=== PATIENT | male | born 1980 | race Caucasian/White ===

== ENCOUNTER 2018-10-13 21:01 | Emergency (ER) | payer MEDICAID, OTHER | END 2018-10-13 23:08 | disposition home or self-care (01) | LOC: ER 21:01 ==

== ENCOUNTER 2019-02-05 16:44 | Emergency (ER) | payer MEDICAID ==
[~2019-02-05] VITALS: Ht 182.9 cm; Wt 93.0 kg
[~2019-02-05 16:44] MED LIST: SULF1TAB35 PO; TRAM-42 PO
[2019-02-05 16:52] VITALS: BP 160/86
--- NOTE | 2019-02-05 17:23 | ED General ---
General Chief Complaint: Cough/Cold/Flu Symptoms Stated Complaint: POSSIBLE DEHYDRATION Nursing Triage Note: pt states he was recently put on medication for bronchitis and he noticed that he is dehydrated. He has not urinated today and is not sweating like he normally does at his job. Nursing Sepsis Screen: No Definite Risk Source of Information: Patient Exam Limitations: No Limitations History of Present Illness Date Seen by Provider: Feb 05, 2019 Time Seen by Provider: 17:21 Initial Comments 38-year-old male who presents to the emergency room with complaints of feelings of fatigue and concerned with dehydration. He reports that he has not urinated since this morning nor has he perspired like normal when he works. Denies fevers. Timing/Duration: 1 Day Associated Systoms: No Diaphoresis Allergies and Home Medications Allergies Coded Allergies: No Known Drug Allergies (Unverified , 10/13/18) Home Medications Sulfamethoxazole/Trimethoprim 1 Each Tablet, 1 EACH PO BID Prescribed by: JERONIMO AMEZCUA on 10/13/182247 Tramadol HCl 50 Mg Tablet, 50 MG PO Q6H PRN for PAIN-MILD Prescribed by: JERONIMO AMEZCUA on 10/13/182247 Patient Home Medication List Home Medication List Reviewed: Yes Review of Systems Review of Systems Constitutional: see HPI; No chills, No fever; malaise Skin: see HPI, other (not perspiring like normal) All Other Systems Reviewed Negative Unless Noted: Yes Past Dbtbvjs-Hhxubz-Mfvjrt Hx Past Med/Social Hx: Reviewed Nursing Past Med/Soc Hx Patient Social History Alcohol Use: Denies Use Recreational Drug Use: Yes Drug of Choice: METH Smoking Status: Current Everyday Smoker Type Used: Cigars Recent Foreign Travel: No Contact w/Someone Who Travel: No Recent Infectious Disease Expo: No Recent Hopitalizations: No Immunizations Up To Date Tetanus Booster (TDap): Unknown PED Vaccines UTD: Yes Seasonal Allergies Seasonal Allergies: No Past Medical History Surgeries: No Respiratory: No Cardiac: No Neurological: No Genitourinary: No Gastrointestinal: No Musculoskeletal: No Endocrine: No HEENT: No Cancer: No Psychosocial: Yes Bipolar Integumentary: No Family Medical History Reviewed Nursing Family Hx Physical Exam Vital Signs Vital Signs - First Documented 02/05/19 16:52 Temp 98.6 Pulse 110 Resp 20 B/P (MAP) 160/86 (110) Pulse Ox 94 O2 Delivery Room Air Capillary Refill : Less Than 3 Seconds Height, Weight, BMI Height: 6'0" Weight: 205lbs. oz. 92.331228lg; BMI Method:Stated General Appearance: No Apparent Distress, WD/WN HEENT: PERRL/EOMI, TMs Normal, Normal ENT Inspection, Pharynx Normal Neck: Full Range of Motion, Normal Inspection, Non Tender, Supple, Carotid Bruit Respiratory: Chest Non Tender, Lungs Clear, Normal Breath Sounds, No Accessory Muscle Use, No Respiratory Distress Cardiovascular: Regular Rate, Rhythm, No Edema, No Gallop, No JVD, No Murmur, Normal Peripheral Pulses Gastrointestinal: Normal Bowel Sounds, No Organomegaly, No Pulsatile Mass, Non Tender, Soft Progress/Results/Core Measures Suspected Sepsis Recent Fever Within 48 Hours: No Infection Criteria Present: None New/Unexplained Altered Menta: No Sepsis Screen: No Definite Risk SIRS Temperature:98.6 Pulse: 110 Respiratory Rate: 20 Blood Pressure 160 /86 Mean: 110 Results/Orders My Orders Vital Signs/I&O Capillary Refill : Less Than 3 Seconds Blood Pressure Mean: 110 Progress Note : Time: 18:31 Progress Note Nursing staff informed me that the patient wishes to leave AGAINST MEDICAL ADVICE at this time. The patient was informed of risks of leaving and benefits of staying. He agrees to risks of leaving. Return precautions were given. AMA papers were signed. Departure Impression Primary Impression: Left against medical advice Additional Impression: mild rhabdomyolysis Disposition: 07 AGAINST MEDICAL ADVICE Condition: Against Medical Advice Departure-Patient Inst. Referrals: DELFINO MARCUM MD (PCP/Family) Primary Care Physician JERONIMO AMEZCUA Feb 05, 2019 17:23
[2019-02-05 17:25] LABS: BASOPHILS % (AUTO) 0 % (0-10); EOSINOPHILS % (AUTO) 0 % (0-10); HEMATOCRIT 41 % (40-54); LYMPHOCYTES # (AUTO) 1.3 X 10^3 (1.0-4.0); LYMPHOCYTES % (AUTO) 10 % (12-44); MEAN CORPUSCULAR HEMOGLOBIN 30 PG (25-34); MEAN CORPUSCULAR HGB CONC 35 G/DL (32-36); MEAN CORPUSCULAR VOLUME 87 FL (80-99); MEAN PLATELET VOLUME 10.9 FL (7.4-10.4); MONOCYTES # (AUTO) 0.6 X 10^3 (0.0-1.0); MONOCYTES % (AUTO) 5 % (0-12); NEUTROPHILS # (AUTO) 11.6 X 10^3 (1.8-7.8); NEUTROPHILS % (AUTO) 85 % (42-75); PLATELET COUNT 265 10^3/uL (130-400); RED CELL DISTRIBUTION WIDTH 12.6 % (10.0-14.5); WHITE BLOOD COUNT 13.6 10^3/uL (4.3-11.0)
[2019-02-05] MEDS ORDERED: NS IV 1000 ML 1,000 ML IV SCH (17:30)
[2019-02-05 17:43] LABS: ALANINE AMINOTRANSFERASE 52 U/L (0-55); ALBUMIN 4.4 GM/DL (3.2-4.5); ALKALINE PHOSPHATASE 104 U/L (40-136); BILIRUBIN,TOTAL 0.4 MG/DL (0.1-1.0); BUN/CREATININE RATIO 20; CALCIUM 9.9 MG/DL (8.5-10.1); CARBON DIOXIDE 18 MMOL/L (21-32); CHLORIDE 108 MMOL/L (98-107); CREATINE KINASE 671 U/L (30-200); CREATININE SERUM 1.12 MG/DL (0.60-1.30); GFR ESTIMATED > 60; GLUCOSE 134 MG/DL (70-105); POTASSIUM 4.1 MMOL/L (3.6-5.0); SODIUM 142 MMOL/L (135-145); TOTAL PROTEIN 7.6 GM/DL (6.4-8.2)
[2019-02-05 18:28] LABS: BILIRUBIN,URINE NEGATIVE (NEGATIVE); CLARITY,URINE CLEAR; COLOR,URINE YELLOW; GLUCOSE, URINE (UA) NEGATIVE (NEGATIVE); KETONES,URINE NEGATIVE (NEGATIVE); LEUKOCYTE ESTERASE ,URINE NEGATIVE (NEGATIVE); NITRITE,URINE NEGATIVE (NEGATIVE); PH,URINE 6 (5-9); PROTEIN,URINE NEGATIVE (NEGATIVE); UROBILINOGEN,URINE NORMAL (NORMAL)
[2019-02-05 18:37] LABS: BACTERIA,URINE NEGATIVE /HPF; SQUAMOUS EPITHELIAL CELL,UR RARE /HPF
[2019-02-05 18:50] LABS: AMPHETAMINE SCREEN, URINE POSITIVE (NEGATIVE); BARBITURATE SCREEN URINE NEGATIVE (NEGATIVE); BENZODIAZEPINES SCREEN URINE NEGATIVE (NEGATIVE); CANNABINOID SCREEN, URINE NEGATIVE (NEGATIVE); COCAINE SCREEN URINE NEGATIVE (NEGATIVE); METHADONE STAT NEGATIVE (NEGATIVE); METHAMPHETAMINE SCREEN URINE S NEGATIVE (NEGATIVE); OPIATE SCREEN URINE NEGATIVE (NEGATIVE); OXYCODONE STAT NEGATIVE (NEGATIVE); PROPOXYPHENE STAT NEGATIVE (NEGATIVE); TRICYCLIC ANTIDEPRESSANTS SCRE NEGATIVE (NEGATIVE)
== END 2019-02-05 18:31 | disposition left against medical advice (07) ==
LOC: EDUNIT# 16:44 → ER 16:45
DX: R53.83 Other fatigue (principal); F31.9 Bipolar disorder, unspecified; F15.10 Other stimulant abuse, uncomplicated; F17.290 Nicotine dependence, other tobacco product, uncomplicated
CPT/HCPCS: 36415; 80053; 80306; 81000; 82550; 85025

== ENCOUNTER 2019-10-17 18:54 | Inpatient (IN) | payer OTHER, MEDICAID ==
[~2019-10-17] VITALS: Ht 182.8 cm; Wt 95.0 kg
[2019-10-17] MEDS ORDERED: NS IV 1000 ML 1,000 ML ONE (19:03)
[2019-10-17] MEDS ORDERED: KETAMINE/NaCl 50 MG/5 ML SYRINGE (ED ONLY) ONE (19:03)
[2019-10-17] MEDS ORDERED: NS IV 1000 ML 1,000 ML IV ONE ×2 (19:05→19:46)
[2019-10-17 19:11] LABS: BASOPHILS # (AUTO) 0.1 10^3/uL (0.0-0.1); BASOPHILS % (AUTO) 0 % (0-10); EOSINOPHILS # (AUTO) 0.2 10^3/uL (0.0-0.3); EOSINOPHILS % (AUTO) 1 % (0-10); HEMATOCRIT 48 % (40-54); HEMOGLOBIN 16.9 G/DL (13.3-17.7); LYMPHOCYTES # (AUTO) 6.4 X 10^3 (1.0-4.0); LYMPHOCYTES % (AUTO) 26 % (12-44); MEAN CORPUSCULAR HEMOGLOBIN 30 PG (25-34); MEAN CORPUSCULAR HGB CONC 35 G/DL (32-36); MEAN CORPUSCULAR VOLUME 86 FL (80-99); MEAN PLATELET VOLUME 11.3 FL (7.4-10.4); MONOCYTES % (AUTO) 8 % (0-12); NEUTROPHILS # (AUTO) 16.1 X 10^3 (1.8-7.8); NEUTROPHILS % (AUTO) 65 % (42-75); PLATELET COUNT 281 10^3/uL (130-400); RED CELL DISTRIBUTION WIDTH 12.6 % (10.0-14.5); WHITE BLOOD COUNT 24.7 10^3/uL (4.3-11.0)
[2019-10-17] MEDS ORDERED: AMIODARONE FOR BOLUS 150 MG in D5W 100 ML IVPB 100 ML IV ONE (19:15)
[2019-10-17 19:23] LABS: INR 1.1 (0.8-1.4); PROTHROMBIN TIME PATIENT 14.8 SEC (12.2-14.7)
[2019-10-17] MEDS: AMIODARONE INJECTION 450 MG in D5W IV SOLUTION (EXCEL) 250 ML IV SCH (19:26)
[2019-10-17 19:28] LABS: BAND NEUTROPHILS 6 %; BASOPHILS % (MANUAL) 0 %; EOSINOPHILS % (MANUAL) 1 %; LYMPHOCYTES % (MANUAL) 27 %; MONOCYTES % (MANUAL) 11 %; NEUTROPHILS % (MANUAL) 55 %; RBC MORPH NORMAL
[2019-10-17 19:30] LABS: ALANINE AMINOTRANSFERASE 174 U/L (0-55); ALBUMIN 4.9 GM/DL (3.2-4.5); ALKALINE PHOSPHATASE 131 U/L (40-136); BILIRUBIN,TOTAL 1.2 MG/DL (0.1-1.0); BUN/CREATININE RATIO 14; CALCIUM 10.2 MG/DL (8.5-10.1); CARBON DIOXIDE 15 MMOL/L (21-32); CHLORIDE 101 MMOL/L (98-107); CREATININE SERUM 2.14 MG/DL (0.60-1.30); GFR ESTIMATED 34; GLUCOSE 154 MG/DL (70-105); MAGNESIUM 2.1 MG/DL (1.6-2.4); POTASSIUM 4.6 MMOL/L (3.6-5.0); SODIUM 135 MMOL/L (135-145); TOTAL PROTEIN 8.5 GM/DL (6.4-8.2)
[2019-10-17] MEDS ORDERED: ASPIRIN 81 MG CHEW (CHILDREN'S ASA) PO ONE (19:30)
[2019-10-17] MEDS ORDERED: MAGNESIUM 1 GM/100 ML IVPB 100 ML IV ONE (19:30)
--- NOTE | 2019-10-17 19:41 | ED Chest Pain ---
General Chief Complaint: Cardiac/General Problems Stated Complaint: CHEST PAIN, Nursing Triage Note: has had all over body pain since yesterday including chest pain, states today it continued with worsening and SOB, arrived to ED with c/o tia arm pain and "horse shoe" pain in his chest Nursing Sepsis Screen: No Definite Risk Source: patient Exam Limitations: no limitations History of Present Illness Date Seen by Provider: Oct 17, 2019 Time Seen by Provider: 18:56 Initial Comments This 38-year-old man presents to the emergency room by private vehicle with complaints of chest pain, shortness of air, and numbness in his upper extremities. 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 He was "sore all over" which he attributed to the manual labor. This morning he woke up with a sweat and continued to have sweats throughout the day. He noted dyspnea on exertion, especially with taking stairs. He noted bilateral arm pain and bilateral upper extremity numbness. Chest pain started in a horseshoe pattern across his chest about 30 minutes prior to arrival. He has extreme tachycardia on the monitor, likely ventricular tachycardia. He does have a palpable pulse and is alert. He denies any history of cardiac problems. He admits to smoking tobacco and using methamphetamines about 2 weeks ago. He denies any alcohol use. His only other health issue is bipolar disorder for which she takes Latuda. Allergies and Home Medications Allergies Coded Allergies: No Known Drug Allergies (Unverified , 10/13/18) Home Medications Sulfamethoxazole/Trimethoprim 1 Each Tablet, 1 EACH PO BID Prescribed by: JERONIMO AMEZCUA on 10/13/182247 Tramadol HCl 50 Mg Tablet, 50 MG PO Q6H PRN for PAIN-MILD Prescribed by: JERONIMO AMEZCUA on 10/13/182247 Patient Home Medication List Home Medication List Reviewed: Yes Review of Systems Review of Systems Constitutional: see HPI EENTM: No Symptoms Reported Respiratory: See HPI Cardiovascular: See HPI Gastrointestinal: No Symptoms Reported Genitourinary: No Symptoms Reported Musculoskeletal: see HPI Skin: no symptoms reported Psychiatric/Neurological: See HPI Endocrine: No Symptoms Reported Hematologic/Lymphatic: No Symptoms Reported Past Wrhtwcr-Scyjya-Hatmnj Hx Past Med/Social Hx: Reviewed and Corrections made Patient Social History Recreational Drug Use: Yes Drug of Choice: METH Type Used: Cigars Recent Foreign Travel: No Contact w/Someone Who Travel: No Recent Infectious Disease Expo: No Recent Hopitalizations: No Immunizations Up To Date Tetanus Booster (TDap): Unknown PED Vaccines UTD: Yes Seasonal Allergies Seasonal Allergies: No Past Medical History Surgeries: No Respiratory: No Cardiac: No Neurological: No Genitourinary: No Gastrointestinal: No Musculoskeletal: No Endocrine: No HEENT: No Cancer: No Psychosocial: Yes (methamphetamine abuse) Bipolar Integumentary: No Physical Exam Vital Signs Vital Signs - First Documented 10/17/19 10/17/19 18:56 19:32 Temp 36.3 Pulse 250 Resp 20 B/P (MAP) 99/77 (84) Pulse Ox 98 O2 Delivery OxyMask O2 Flow Rate 12.00 Capillary Refill : Less Than 3 Seconds Height, Weight, BMI Height: 6'0" Weight: 205lbs. oz. 92.495089us; 27.00 BMI Method:Stated General Appearance: WD/WN, Mild Distress HEENT: PERRL/EOMI, Normal ENT Inspection Neck: Normal Inspection Respiratory: Lungs Clear, Normal Breath Sounds, No Accessory Muscle Use, No Respiratory Distress Cardiovascular: No Edema, No Murmur, Tachycardia Gastrointestinal: Normal Bowel Sounds, Non Tender, Soft Extremity: No Pedal Edema, Other (pale and cool distal extemities) Neurologic/Psychiatric: Alert, Oriented x3, No Motor/Sensory Deficits, Normal Mood/Affect, inventory specialist manager II-XII Norm as Tested Skin: Cool, Pallor Progress/Results/Core Measures Results/Orders Lab Results Laboratory Tests Test 10/17/19 18:45 10/17/19 18:48 10/17/19 18:58 Range/Units B-Type Natriuretic Peptide 866.6 H <100.0 PG/ML White Blood Count 24.7 H 4.3-11.0 10^3/uL Red Blood Count 5.60 4.35-5.85 10^6/uL Hemoglobin 16.9 13.3-17.7 G/DL Hematocrit 48 40-54 % Mean Corpuscular Volume 86 80-99 FL Mean Corpuscular Hemoglobin 30 25-34 PG Mean Corpuscular Hemoglobin Concent 35 32-36 G/DL Red Cell Distribution Width 12.6 10.0-14.5 % Platelet Count 281 130-400 10^3/uL Mean Platelet Volume 11.3 H 7.4-10.4 FL Neutrophils (%) (Auto) 65 42-75 % Lymphocytes (%) (Auto) 26 12-44 % Monocytes (%) (Auto) 8 0-12 % Eosinophils (%) (Auto) 1 0-10 % Basophils (%) (Auto) 0 0-10 % Neutrophils # (Auto) 16.1 H 1.8-7.8 X 10^3 Lymphocytes # (Auto) 6.4 H 1.0-4.0 X 10^3 Monocytes # (Auto) 2.0 H 0.0-1.0 X 10^3 Eosinophils # (Auto) 0.2 0.0-0.3 10^3/uL Basophils # (Auto) 0.1 0.0-0.1 10^3/uL Neutrophils % (Manual) 55 % Lymphocytes % (Manual) 27 % Monocytes % (Manual) 11 % Eosinophils % (Manual) 1 % Basophils % (Manual) 0 % Band Neutrophils 6 % Blood Morphology Comment NORMAL Prothrombin Time 14.8 H 12.2-14.7 SEC INR Comment 1.1 0.8-1.4 Activated Partial Thromboplast Time 29 24-35 SEC Sodium Level 135 135-145 MMOL/L Potassium Level 4.6 3.6-5.0 MMOL/L Chloride Level 101 98-107 MMOL/L Carbon Dioxide Level 15 L 21-32 MMOL/L Anion Gap 19 H 5-14 MMOL/L Blood Urea Nitrogen 29 H 7-18 MG/DL Creatinine 2.14 H 0.60-1.30 MG/DL Estimat Glomerular Filtration Rate 34 BUN/Creatinine Ratio 14 Glucose Level 154 H 70-105 MG/DL Calcium Level 10.2 H 8.5-10.1 MG/DL Corrected Calcium 8.5-10.1 MG/DL Magnesium Level 2.1 1.6-2.4 MG/DL Total Bilirubin 1.2 H 0.1-1.0 MG/DL Aspartate Amino Transf (AST/SGOT) 109 H 5-34 U/L Alanine Aminotransferase (ALT/SGPT) 174 H 0-55 U/L Alkaline Phosphatase 131 40-136 U/L Myoglobin 109.3 H 10.0-92.0 NG/ML Troponin I 0.161 H <0.028 NG/ML Total Protein 8.5 H 6.4-8.2 GM/DL Albumin 4.9 H 3.2-4.5 GM/DL Serum Alcohol < 10 <10 MG/DL My Orders Orders - NIKKO ALMEIDA MD Ekg Tracing (10/17/19 18:56) Cbc With Automated Diff (10/17/19 19:05) Magnesium (10/17/19 19:05) Chest 1 View, Ap/Pa Only (10/17/19 19:05) Ekg Tracing (10/17/19 19:05) Comprehensive Metabolic Panel (10/17/19 19:05) Myoglobin Serum (10/17/19 19:05) Protime With Inr (10/17/19 19:05) Partial Thromboplastin Time (10/17/19 19:05) O2 (10/17/19 19:05) Monitor-Rhythm Ecg Trace Only (10/17/19 19:05) Ed Iv/Invasive Line Start (10/17/19 19:05) Ns Iv 1000 Ml (Sodium Chloride 0.9%) (10/17/19 19:05) Amiodarone For Bolus (Cordarone Bolus) (10/17/19 19:15) Ketamine Syringe (Ed Only) (Ketamine Syr (10/17/19 19:03) Ns Iv 1000 Ml (Sodium Chloride 0.9%) (10/17/19 19:03) Manual Differential (10/17/19 18:48) Troponin I (10/17/19 18:48) Amiodarone Injection (Cordarone Injectio (10/17/19 19:30) Alcohol (10/17/19 19:16) Drug Screen Stat (Urine) (10/17/19 19:16) Ekg Tracing (10/17/19 19:17) Ekg Tracing (10/17/19 19:17) Aspirin Chewable Tablet (Baby Aspirin Ch (10/17/19 19:30) Magnesium 1 Gm/100 Ml Ivpb (Magnesium Alvarez (10/17/19 19:30) Metoprolol Tartrate Injection (Lopressor (10/17/19 19:45) BNP (10/17/19 19:32) Medications Given in ED Current Medications Medications Dose Ordered Sig/Raul Route Start Time Stop Time Status Last Admin Dose Admin Amiodarone HCl 150 mg/Dextrose 103 ml @ 600 mls/hr ONCE ONCE IV 10/17/19 19:15 10/17/19 19:25 DC 10/17/19 19:04 600 MLS/HR Aspirin 324 mg ONCE ONCE PO 10/17/19 19:30 10/17/19 19:31 DC 10/17/19 19:30 324 MG Magnesium Sulfate/ Dextrose 100 ml @ 100 mls/hr ONCE ONCE IV 10/17/19 19:30 10/17/19 20:29 DC 10/17/19 19:30 100 MLS/HR Sodium Chloride 1,000 ml @ 0 mls/hr Q0M ONCE IV 10/17/19 19:05 10/17/19 19:07 DC 10/17/19 19:50 1,000 MLS/HR Vital Signs/I&O 10/17/19 10/17/19 18:56 19:32 Temp 36.3 Pulse 250 Resp 20 B/P (MAP) 99/77 (84) Pulse Ox 98 O2 Delivery OxyMask O2 Flow Rate 12.00 Blood Pressure Mean: 84 Progress Progress Note #1: Time: 20:40 Progress Note Patient was promptly seen and evaluated. Case was immediately discussed with Dr. Barker. He recommended a amiodarone 150 mg bolus followed by sedation and defibrillation. Patient was given the amiodarone and converted to a sinus rhythm without defibrillation. He maintained acceptable blood pressure. Case was again reviewed with Dr. Barker. He recommended the addition of 1 g of magnesium and IV Lopressor. Patient was found to have acute kidney injury with elevated creatinine. He received 2 L of IV fluid. He remained in stable rhythm on an amiodarone drip. Troponin was elevated but there was no diagnostic ST elevation on multiple EKGs. Progress Note #2: Time: 20:49 Progress Note Brilinta and a heparin drip for added at Dr. Barker's request after elevated troponin was communicated. EKG #1: EKG Time: 18:58 Rate: 241 Comment Extreme tachycardia with wide complex, likely ventricular tachycardia. EKG #2: EKG Time: 19:03 Rate: 64 Rhythm: Normal Sinus Comment Sinus rhythm with low amplitude P waves. No diagnostic ischemic changes. Repolarization abnormality noted. EKG #3: EKG Time: 19:22 Rate: 81 Rhythm: Normal Sinus Comment Normal sinus rhythm with prolonged QT interval of 516. Repolarization ab normality but no diagnostic ischemic changes. Diagnostic Imaging Diagonstic Imaging: Xray Plain Films/CT/US/NM/MRI: chest Comments NAME: DEMOND ALCALA [facility] REC#: [id number] PT STATUS: REG ER : 1980 PHYSICIAN: NIKKO ALMEIDA MD ADMIT DATE: 10/17/19/ER Draft Date of Exam:10/17/19 CHEST 1 VIEW, AP/PA ONLY EXAMINATION: Portable erect AP chest at 7:31 PM INDICATION: Chest pain There are no prior studies available for comparison. The heart size is within normal limits. The lungs are clear. There is no sign of failure, pneumonia or a pleural effusion. The right perihilar region, however, is partially obscured by an external carotid monitoring electrode. The mediastinum is not widened. The osseous structures are intact. IMPRESSION: There is no evidence for active disease. Dictated on workstation # [id number] Dict: 10/17/19 1945 Trans: 10/17/[address] [place] [address] [id number] Interpreted by: HILLARY FITZGERALD MD Departure Communication (Admissions) Time/Spoke to Admitting Phy: 19:30 Dr. Nur Time/Spoke to Consulting Phy: 19:25 Dr. Barker Impression Primary Impression: Ventricular tachycardia Additional Impressions: Chest pain Qualified Codes: R07.9 - Chest pain, unspecified Acute kidney injury Methamphetamine abuse Disposition: ADMITTED INPATIENT Condition: Improved Admissions Decision to Admit Reason: Admit from ER (General) Decision to Admit/Date: Oct 17, 2019 Time/Decision to Admit Time: 18:56 Departure-Patient Inst. Referrals: DELFINO MARCUM MD (PCP/Family) Primary Care Physician NIKKO ALMEIDA MD Oct 17, 2019 19:41
[2019-10-17] MEDS ORDERED: meTOprolol 5 MG/5 ML (LOPRESSOR) VIAL IV ONE (19:45)
--- NOTE | 2019-10-17 19:50 | Diagnostic Imaging Report ---
EXAMINATION: Portable erect AP chest at 7:31 PM INDICATION: Chest pain There are no prior studies available for comparison. The heart size is within normal limits. The lungs are clear. There is no sign of failure, pneumonia or a pleural effusion. The right perihilar region, however, is partially obscured by an external carotid monitoring electrode. The mediastinum is not widened. The osseous structures are intact. IMPRESSION: There is no evidence for active disease. Dictated by: Dictated on workstation # [id number]
[2019-10-17] MEDS ORDERED: HEParin DRIP 25000 UNIT/500ML 500 ML IV ONE (20:47)
[2019-10-17] MEDS ORDERED: HEParin 1000 UNIT/ML (10ML VIAL) FOR BOLUS IV ONE (20:47)
[2019-10-17] MEDS ORDERED: TICAGRELOR 90 MG TABLET (BRILINTA) PO ONE (21:00)
[2019-10-17 21:35] VITALS: BP 126/84
[2019-10-17] MEDS ORDERED: ONDANSETRON 4 MG/2 ML (SDV) Z0FRAN IV PRN (21:45)
[2019-10-17 22:00] VITALS: BP 118/80
[2019-10-17 22:30] VITALS: BP 135/90
[2019-10-17 22:39] LABS: AMPHETAMINE SCREEN, URINE POSITIVE (NEGATIVE); BARBITURATE SCREEN URINE NEGATIVE (NEGATIVE); BENZODIAZEPINES SCREEN URINE NEGATIVE (NEGATIVE); CANNABINOID SCREEN, URINE NEGATIVE (NEGATIVE); COCAINE SCREEN URINE NEGATIVE (NEGATIVE); METHADONE STAT NEGATIVE (NEGATIVE); METHAMPHETAMINE SCREEN URINE S POSITIVE (NEGATIVE); OPIATE SCREEN URINE NEGATIVE (NEGATIVE); OXYCODONE STAT NEGATIVE (NEGATIVE); PROPOXYPHENE STAT NEGATIVE (NEGATIVE); TRICYCLIC ANTIDEPRESSANTS SCRE NEGATIVE (NEGATIVE)
[2019-10-17 22:45] VITALS: BP 119/88
[2019-10-17 23:00] VITALS: BP 126/99
[2019-10-17] MEDS: NS IV 1000 ML 1,000 ML IV SCH (23:04)
[2019-10-17 23:45] VITALS: BP 133/97
[2019-10-18] VITALS (24 sets, daily range): BP systolic 117–165; BP diastolic 81–110
[2019-10-18] MEDS ORDERED: AMIODARONE (OMNICELL DRIP KIT) 150 MG/3 ML IV ONE ×2 (01:35→10:00)
[2019-10-18] MEDS ORDERED: D5W 100 ML IVPB 0 ML IV ONE (01:35)
[2019-10-18] MEDS ORDERED: AMIODARONE 450 MG/9 ML (CORDARONE) VIAL IV ONE ×2 (01:37→10:00)
[2019-10-18] MEDS ORDERED: D5W IV SOLUTION (EXCEL) 250 ML IV ONE (01:38)
[2019-10-18] MEDS: AMIODARONE INJECTION 450 MG in D5W IV SOLUTION (EXCEL) 250 ML IV SCH (01:49)
[2019-10-18] MEDS ORDERED: HEParin DRIP 25000 UNIT/500ML 500 ML IV ONE (02:29)
[2019-10-18 03:46] LABS: BASOPHILS # (AUTO) 0.1 10^3/uL (0.0-0.1); BASOPHILS % (AUTO) 0 % (0-10); EOSINOPHILS # (AUTO) 0.1 10^3/uL (0.0-0.3); EOSINOPHILS % (AUTO) 1 % (0-10); HEMATOCRIT 38 % (40-54); LYMPHOCYTES # (AUTO) 3.7 X 10^3 (1.0-4.0); LYMPHOCYTES % (AUTO) 23 % (12-44); MEAN CORPUSCULAR HEMOGLOBIN 30 PG (25-34); MEAN CORPUSCULAR HGB CONC 35 G/DL (32-36); MEAN CORPUSCULAR VOLUME 87 FL (80-99); MEAN PLATELET VOLUME 11.3 FL (7.4-10.4); MONOCYTES # (AUTO) 1.4 X 10^3 (0.0-1.0); MONOCYTES % (AUTO) 8 % (0-12); NEUTROPHILS # (AUTO) 11.3 X 10^3 (1.8-7.8); NEUTROPHILS % (AUTO) 68 % (42-75); PLATELET COUNT 175 10^3/uL (130-400); RED CELL DISTRIBUTION WIDTH 12.3 % (10.0-14.5); WHITE BLOOD COUNT 16.6 10^3/uL (4.3-11.0)
[2019-10-18 04:11] LABS: ALANINE AMINOTRANSFERASE 107 U/L (0-55); ALBUMIN 3.6 GM/DL (3.2-4.5); ALKALINE PHOSPHATASE 93 U/L (40-136); BILIRUBIN,TOTAL 0.9 MG/DL (0.1-1.0); BUN/CREATININE RATIO 20; CALCIUM 7.9 MG/DL (8.5-10.1); CARBON DIOXIDE 16 MMOL/L (21-32); CHLORIDE 105 MMOL/L (98-107); CHOLESTEROL 149 MG/DL (< 200); CREATININE SERUM 1.03 MG/DL (0.60-1.30); GFR ESTIMATED > 60; GLUCOSE 104 MG/DL (70-105); HDL CHOLESTEROL 44 MG/DL (40-60); MAGNESIUM 1.7 MG/DL (1.6-2.4); POTASSIUM 3.8 MMOL/L (3.6-5.0); SODIUM 132 MMOL/L (135-145); TOTAL PROTEIN 6.1 GM/DL (6.4-8.2); TRIGLYCERIDES 169 MG/DL (<150); VLDL CHOLESTEROL 34 MG/DL (5-40)
[2019-10-18] MEDS: MAGNESIUM 1 GM/100 ML IVPB 100 ML IV SCH ×3 (04:33→06:38)
[2019-10-18] MEDS: POTASSIUM CL 10MEQ/50ML IVPB 50 ML IV SCH (04:33)
[2019-10-18] MEDS: KCL 20 MEQ TAB (K-DUR) PO SCH (04:33)
[2019-10-18] MEDS: NS IV 1000 ML 1,000 ML IV SCH ×6 (04:44→19:39)
[2019-10-18] MEDS: ASPIRIN E.C. 81 MG (ECOTRIN) TAB PO SCH (08:19)
[2019-10-18] MEDS ORDERED: HEParin DRIP 25000 UNIT/500ML 500 ML IV SCH (08:31)
[2019-10-18] MEDS ORDERED: HEParin 1000 UNIT/ML (10ML VIAL) FOR BOLUS IV PRN (08:45)
[2019-10-18] MEDS ORDERED: LURA80TA3 PO (08:55)
[2019-10-18 09:36] LABS: HEMOGLOBIN 12.9 G/DL (13.3-17.7); MEAN PLATELET VOLUME 11.3 FL (7.4-10.4); RED CELL DISTRIBUTION WIDTH 12.2 % (10.0-14.5); WHITE BLOOD COUNT 15.2 10^3/uL (4.3-11.0)
[2019-10-18 09:46] LABS: INR 1.2 (0.8-1.4); PROTHROMBIN TIME PATIENT 15.6 SEC (12.2-14.7)
[2019-10-18] MEDS ORDERED: D5W 250 ML (EXCEL) BAG IV ONE (10:00)
[2019-10-18] MEDS ORDERED: LIDOCAINE 1% INJ 20 ML 20 ML VIAL ONE (10:00)
[2019-10-18] MEDS ORDERED: HEParin 1000 UNIT/ML (10ML VIAL) FOR BOLUS ONE (10:00)
[2019-10-18] MEDS ORDERED: NS IV 1000 ML 2,000 ML ONE (10:01)
--- NOTE | 2019-10-18 10:17 | History & Physical ---
HPI History of Present Illness: 38 yo male came to ER after a few days of chest pain, shortness of breath and night sweats. Denies nasal congestion, sore throat, cough. Found in ER to have V tach with pulse and alert, plan was to give amiodarone and the shock, he converted with amiodarone. Source: patient Date seen by provider: Oct 18, 2019 Time Seen by Provider: 09:55 Attending Physician Luis Nur MD PCP Alex Maguire MD Consult Date of Admission Oct 17, 2019 at 19:33 Home Medications Home Medications Reviewed patient Home Medication Reconciliation performed by pharmacy medication reconciliations lidar technician and/or nursing. Patients Allergies have been reviewed. Allergies Coded Allergies: No Known Drug Allergies (Unverified , 10/13/18) [id number] Hx Patient Social History Alcohol Use: Denies Use Recreational Drug Use: Yes Drug of Choice: METH- smoking and injecting Type Used: Cigars, Electronic/Vapor Recent Foreign Travel: No Contact w/other who traveled: No Recent Hopitalizations: No Recent Infectious Disease Expo: No Immunizations Up To Date Tetanus Booster (TDap): Unknown Past Medical History PMHx: Denies SurgHx: Denies Family Medical History Significant Family History: No Pertinent Family Hx (reports father had one episode of chest pains and work up was okay) Review of Systems ([facility]) Constitutional: diaphoresis; No fever EENTM: No nose congestion, No throat pain Respiratory: No cough Cardiovascular: chest pain Gastrointestinal: No abdominal pain, No constipation, No diarrhea, No nausea, No vomiting Genitourinary: No dysuria Musculoskeletal: joint pain (2 days ago had diffuse body aches) Skin: No rash Psychiatric/Neurological: Anxiety, Depressed Reviewed Test Results Reviewed Test Results Lab Laboratory Tests Test 10/17/19 18:45 10/17/19 18:48 10/17/19 18:58 10/17/19 22:15 Range/Units B-Type Natriuretic Peptide 866.6 H <100.0 PG/ML White Blood Count 24.7 H 4.3-11.0 10^3/uL Red Blood Count 5.60 4.35-5.85 10^6/uL Hemoglobin 16.9 13.3-17.7 G/DL Hematocrit 48 40-54 % Mean Corpuscular Volume 86 80-99 FL Mean Corpuscular Hemoglobin 30 25-34 PG Mean Corpuscular Hemoglobin Concent 35 32-36 G/DL Red Cell Distribution Width 12.6 10.0-14.5 % Platelet Count 281 130-400 10^3/uL Mean Platelet Volume 11.3 H 7.4-10.4 FL Neutrophils (%) (Auto) 65 42-75 % Lymphocytes (%) (Auto) 26 12-44 % Monocytes (%) (Auto) 8 0-12 % Eosinophils (%) (Auto) 1 0-10 % Basophils (%) (Auto) 0 0-10 % Neutrophils # (Auto) 16.1 H 1.8-7.8 X 10^3 Lymphocytes # (Auto) 6.4 H 1.0-4.0 X 10^3 Monocytes # (Auto) 2.0 H 0.0-1.0 X 10^3 Eosinophils # (Auto) 0.2 0.0-0.3 10^3/uL Basophils # (Auto) 0.1 0.0-0.1 10^3/uL Neutrophils % (Manual) 55 % Lymphocytes % (Manual) 27 % Monocytes % (Manual) 11 % Eosinophils % (Manual) 1 % Basophils % (Manual) 0 % Band Neutrophils 6 % Blood Morphology Comment NORMAL Prothrombin Time 14.8 H 12.2-14.7 SEC INR Comment 1.1 0.8-1.4 Activated Partial Thromboplast Time 29 24-35 SEC Sodium Level 135 135-145 MMOL/L Potassium Level 4.6 3.6-5.0 MMOL/L Chloride Level 101 98-107 MMOL/L Carbon Dioxide Level 15 L 21-32 MMOL/L Anion Gap 19 H 5-14 MMOL/L Blood Urea Nitrogen 29 H 7-18 MG/DL Creatinine 2.14 H 0.60-1.30 MG/DL Estimat Glomerular Filtration Rate 34 BUN/Creatinine Ratio 14 Glucose Level 154 H 70-105 MG/DL Calcium Level 10.2 H 8.5-10.1 MG/DL Corrected Calcium 8.5-10.1 MG/DL Magnesium Level 2.1 1.6-2.4 MG/DL Total Bilirubin 1.2 H 0.1-1.0 MG/DL Aspartate Amino Transf (AST/SGOT) 109 H 5-34 U/L Alanine Aminotransferase (ALT/SGPT) 174 H 0-55 U/L Alkaline Phosphatase 131 40-136 U/L Myoglobin 109.3 H 10.0-92.0 NG/ML Troponin I 0.161 H <0.028 NG/ML Total Protein 8.5 H 6.4-8.2 GM/DL Albumin 4.9 H 3.2-4.5 GM/DL Serum Alcohol < 10 <10 MG/DL Urine Opiates Screen NEGATIVE NEGATIVE Urine Oxycodone Screen NEGATIVE NEGATIVE Urine Methadone Screen NEGATIVE NEGATIVE Urine Propoxyphene Screen NEGATIVE NEGATIVE Urine Barbiturates Screen NEGATIVE NEGATIVE Ur Tricyclic Antidepressants Screen NEGATIVE NEGATIVE Urine Phencyclidine Screen NEGATIVE NEGATIVE Urine Amphetamines Screen POSITIVE H NEGATIVE Urine Methamphetamines Screen POSITIVE H NEGATIVE Urine Benzodiazepines Screen NEGATIVE NEGATIVE Urine Cocaine Screen NEGATIVE NEGATIVE Urine Cannabinoids Screen NEGATIVE NEGATIVE Test 10/18/19 03:27 10/18/19 09:25 Range/Units White Blood Count 16.6 H 15.2 H 4.3-11.0 10^3/uL Red Blood Count 4.33 L 4.28 L 4.35-5.85 10^6/uL Hemoglobin 13.0 #L 12.9 L 13.3-17.7 G/DL Hematocrit 38 L 38 L 40-54 % Mean Corpuscular Volume 87 88 80-99 FL Mean Corpuscular Hemoglobin 30 30 25-34 PG Mean Corpuscular Hemoglobin Concent 35 34 32-36 G/DL Red Cell Distribution Width 12.3 12.2 10.0-14.5 % Platelet Count 175 176 130-400 10^3/uL Mean Platelet Volume 11.3 H 11.3 H 7.4-10.4 FL Neutrophils (%) (Auto) 68 42-75 % Lymphocytes (%) (Auto) 23 12-44 % Monocytes (%) (Auto) 8 0-12 % Eosinophils (%) (Auto) 1 0-10 % Basophils (%) (Auto) 0 0-10 % Neutrophils # (Auto) 11.3 H 1.8-7.8 X 10^3 Lymphocytes # (Auto) 3.7 1.0-4.0 X 10^3 Monocytes # (Auto) 1.4 H 0.0-1.0 X 10^3 Eosinophils # (Auto) 0.1 0.0-0.3 10^3/uL Basophils # (Auto) 0.1 0.0-0.1 10^3/uL Sodium Level 132 L 135-145 MMOL/L Potassium Level 3.8 3.6-5.0 MMOL/L Chloride Level 105 98-107 MMOL/L Carbon Dioxide Level 16 L 21-32 MMOL/L Anion Gap 11 5-14 MMOL/L Blood Urea Nitrogen 21 H 7-18 MG/DL Creatinine 1.03 0.60-1.30 MG/DL Estimat Glomerular Filtration Rate > 60 BUN/Creatinine Ratio 20 Glucose Level 104 70-105 MG/DL Calcium Level 7.9 L 8.5-10.1 MG/DL Corrected Calcium 8.2 L 8.5-10.1 MG/DL Magnesium Level 1.7 1.6-2.4 MG/DL Total Bilirubin 0.9 0.1-1.0 MG/DL Aspartate Amino Transf (AST/SGOT) 60 H 5-34 U/L Alanine Aminotransferase (ALT/SGPT) 107 H 0-55 U/L Alkaline Phosphatase 93 40-136 U/L Troponin I 0.158 H <0.028 NG/ML Total Protein 6.1 L 6.4-8.2 GM/DL Albumin 3.6 3.2-4.5 GM/DL Triglycerides Level 169 H <150 MG/DL Cholesterol Level 149 < 200 MG/DL LDL Cholesterol Direct 97 1-129 MG/DL VLDL Cholesterol 34 5-40 MG/DL HDL Cholesterol 44 40-60 MG/DL Prothrombin Time 15.6 H 12.2-14.7 SEC INR Comment 1.2 0.8-1.4 Activated Partial Thromboplast Time 43 H 24-35 SEC Physical Exam-([facility]) Physical Exam Vital Signs VS - Last 72 Hours, by Label 10/17/19 10/17/19 10/17/19 10/17/19 18:56 19:32 21:35 21:56 Temp 36.3 36.7 Pulse 250 76 80 Resp 20 23 B/P (MAP) 99/77 (84) 126/84 (98) Pulse Ox 98 99 O2 Delivery OxyMask Room Air O2 Flow Rate 12.00 10/17/19 10/17/19 10/17/19 10/17/19 22:00 22:30 22:45 23:00 Pulse 79 80 78 80 Resp 17 21 12 21 B/P (MAP) 118/80 (93) 135/90 (105) 119/88 (98) 126/99 (108) Pulse Ox 99 97 98 97 O2 Delivery Room Air Room Air Room Air Room Air 10/17/19 10/18/19 10/18/19 10/18/19 23:45 00:00 00:00 00:00 Temp 37.5 Pulse 81 81 Resp 11 20 B/P (MAP) 133/97 (109) 117/99 (105) Pulse Ox 98 98 O2 Delivery Room Air Room Air Room Air 10/18/19 10/18/19 10/18/19 10/18/19 01:00 01:00 02:00 03:00 Pulse 86 82 84 81 Resp 16 13 14 B/P (MAP) 130/96 (107) 138/96 (110) 121/93 (102) Pulse Ox 99 97 97 O2 Delivery Room Air Room Air Room Air 10/18/19 10/18/19 10/18/19 10/18/19 04:00 04:00 04:00 05:00 Temp 37.2 Pulse 81 84 Resp 15 15 B/P (MAP) 151/91 (111) 150/88 (108) Pulse Ox 100 99 O2 Delivery Room Air Room Air Room Air 10/18/19 10/18/19 10/18/19 10/18/19 06:00 07:00 07:00 08:00 Temp 36.2 Pulse 82 78 83 81 Resp 19 13 24 B/P (MAP) 158/102 (120) 164/110 (128) 151/85 (107) Pulse Ox 98 99 99 O2 Delivery Room Air Room Air Room Air 10/18/19 10/18/19 10/18/19 10/18/19 08:00 09:00 10:00 11:00 Pulse 87 82 84 Resp 19 21 B/P (MAP) 165/97 (119) 158/108 (125) 140/92 (108) Pulse Ox 99 98 100 O2 Delivery Room Air Room Air Room Air Room Air 10/18/19 10/18/19 10/18/19 12:15 12:15 13:00 Temp 36.6 Pulse 81 77 Resp 19 B/P (MAP) 143/96 (112) Pulse Ox 99 O2 Delivery Room Air Room Air Capillary Refill : Less Than 3 Seconds General Appearance: WD/WN, no apparent distress Respiratory: lungs clear, normal breath sounds Cardiovascular: regular rate, rhythm, no murmur Gastrointestinal: normal bowel sounds, non tender, soft Extremities: no pedal edema Neurologic/Psychiatric: alert, normal mood/affect Skin: normal color, warm/dry Assessment/Plan Assessment/Plan Admission Status: Inpatient Order (span 2 midnights) Reason for Inpatient Admission: Ventricular tachycardia, severe life threatening arrythmia needing further work-up (1) Ventricular tachycardia Status: Acute Assessment & Plan: Converted with amiodarone, currently on amiodarone drip, appreciate Cardiology recommendations. (2) Chest pain Status: Acute Qualifiers: Qualified Codes: R07.9 - Chest pain, unspecified (3) Methamphetamine abuse Status: Acute Assessment & Plan: Discussed risks and recommended cessation. (4) Elevated liver enzymes Status: Acute Assessment & Plan: Check hepatitis panel (5) Acute kidney injury Status: Resolved Assessment & Plan: Resolved overnight with IVF (6) Bipolar disorder Status: Chronic Assessment & Plan: Hold latuda for now, will research if it can cause long QT as his EKG did have long QT- this was also after amio, so unclear etiology. (7) Leukocytosis Assessment & Plan: Possibly reactive, no evidence of infection. Decreased today, but still elevated, monitor. (8) Hyponatremia Status: Acute (9) Elevated troponin Status: Acute Assessment & Plan: Plan for cath today per Cardiology. (10) DVT prophylaxis Status: Acute Assessment & Plan: Heparin drip started last night Clinical Quality Measures DVT/VTE Risk/Contraindication: Risk Factor Score Per Nursin RFS Level Per Nursing on Admit: 2=Moderate LUIS NUR MD Oct 18, 2019 10:17
--- NOTE | 2019-10-18 10:39 | Consultation-Cardiology ---
HPI-Cardiology Cardiology Consultation: Date of Consultation 10/18/19 Date of Admission Attending Physician Salena Nur MD Admitting Physician Alex Maguire MD Consulting Physician Denia BARKER MD HPI: Time Seen by a Provider: 09:15 Chief Complaint: Shortness of breath, chest pressure This is a 38-year-old gentleman with history of bipolar disorder for which she takes Latuda, active smoking, meth use 2 weeks ago. He complains of chest pain, shortness of breath. He's been sick for 2-3 days. He denied any palpitations. No syncope, near-syncope. In the ER he was found to be in wide complex tachycardia with a systolic blood pressure of 90 mmHg. He was given IV amiodarone which resulted in conversion to sinus rhythm. Review of Systems-Cardiology Review of Systems Constitutional: As described under HPI; No As described under HPI, No no symptoms reported, No chills, No fever, No lightheadedness Eyes: No As described under HPI, No no symptoms reported, No blindness, No blurred vision, No contact lenses, No drainage, No decreased acuity, No foreign body sensation, No pain, No vision change Ears/Nose/Throat: No As described under HPI, No no symptoms reported, No chronic hearing loss, No ear discharge, No ear pain, No nasal drainage, No ulcerations Respiratory: No no symptoms reported; As described under HPI; No As described under HPI, No cough; orthopnea; No shortness of breath, No SOB with excertion Cardiovascular: No no symptoms reported; As described under HPI; No As described under HPI; chest pain; No edema, No irregular heart rate, No lightheadedness, No palpitations Gastrointestinal: No no symptoms reported, No As described under HPI, No abdomen distended, No abdominal pain, No blood streaked bowels, No constipation, No diarrhea, No nausea, No vomiting, No stool coloration changes Genitourinary: No As described under HPI, No burning, No dysuria, No discharge, No frequency, No flank pain, No hematuria, No urgency Skin: No rash, No skin related problems, No ulcerations Psychiatric/Neurological: No anxiety, No depression, No seizure, No focal weakness, No syncope Hematologic: No bleeding abnormalities [id number] Hx Patient Social History Alcohol Use: Denies Use Recreational Drug Use: Yes Drug of Choice: METH- smoking and injecting Type Used: Cigars, Electronic/Vapor Recent Foreign Travel: No Recent Infectious Disease Expo: No Hospitalization with Isolation: Denies Immunizations Up To Date Tetanus Booster (TDap): Unknown Past Medical History PMH As described under Assessment. Allergies and Home Medications Allergies Coded Allergies: No Known Drug Allergies (Unverified , 10/13/18) Home Medications Lurasidone HCl 80 Mg Tablet, 80 MG PO HS, (Reported) Patient Home Medication List Home Medication List Reviewed: Yes Physical Exam-Cardiology Physical Exam Vital Signs/I&O 10/18/19 10/18/19 10/18/19 10/18/19 08:00 08:00 09:00 10:00 Temp 36.2 Pulse 81 87 82 Resp 24 19 21 B/P (MAP) 151/85 (107) 165/97 (119) 158/108 (125) Pulse Ox 99 99 98 O2 Delivery Room Air Room Air Room Air Room Air 10/18/19 10/18/19 10/18/19 10/18/19 11:00 12:15 12:15 13:00 Temp 36.6 Pulse 84 81 77 Resp 19 21 B/P (MAP) 140/92 (108) 143/96 (112) 138/87 (104) Pulse Ox 100 99 98 O2 Delivery Room Air Room Air Room Air Room Air 10/18/19 10/18/19 10/18/19 10/18/19 13:00 14:00 15:00 16:00 Temp 37.8 Pulse 77 78 84 Resp 12 15 B/P (MAP) 143/108 (120) 158/91 (113) Pulse Ox 99 98 O2 Delivery Room Air Room Air 10/18/19 10/18/19 10/18/19 10/18/19 16:00 16:00 17:00 18:00 Pulse 85 92 82 Resp 13 12 16 B/P (MAP) 154/92 (112) 126/100 (109) 165/92 (116) Pulse Ox 98 98 94 O2 Delivery Room Air Room Air Room Air Room Air 10/18/19 00:00 Output Total 300 ml Balance -300 ml Capillary Refill : Less Than 3 Seconds Constitutional: appears stated age, AAO x 3; No apparent distress; well- developed, well-nourished HEENT: PERRL; No discharge; hearing is well preserved, oral hygience is good; No ulceration, No xanthelasmas are seen Neck: No carotid bruit; carotid pulses are 2 + bilaterally Respiratory: chest is bilaterally symmetric, lungs clear to auscultation Cardiovascular: regular rate-rhythm, S1 and S2 Gastrointestinal: soft, audible bowel sounds; No spleenomegaly Rectal: deferred Extremities: normal range of motion, non-tender, normal inspection; No clubbing, No cyanosis; no lower extremity edema bilateral; No significant edema Neurologic/Psychiatric: no motor/sensory deficits, alert, normal mood/affect, oriented x 3, power is 5/5 both on sides Skin: normal color, warm/dry; No rash, No ulcerations Data Review Labs Laboratory Tests 10/17/19 22:15: Urine Opiates Screen NEGATIVE, Urine Oxycodone Screen NEGATIVE, Urine Methadone Screen NEGATIVE, Urine Propoxyphene Screen NEGATIVE, Urine Barbiturates Screen NEGATIVE, Ur Tricyclic Antidepressants Screen NEGATIVE, Urine Phencyclidine Screen NEGATIVE, Urine Amphetamines Screen POSITIVEH, Urine Methamphetamines Screen POSITIVEH, Urine Benzodiazepines Screen NEGATIVE, Urine Cocaine Screen NEGATIVE, Urine Cannabinoids Screen NEGATIVE 10/18/19 03:27: White Blood Count 16.6H, Red Blood Count 4.33L, Hemoglobin 13.0#L, Hematocrit 38L, Mean Corpuscular Volume 87, Mean Corpuscular Hemoglobin 30, Mean Corpuscular Hemoglobin Concent 35, Red Cell Distribution Width 12.3, Platelet Count 175, Mean Platelet Volume 11.3H, Neutrophils (%) (Auto) 68, Lymphocytes (%) (Auto) 23, Monocytes (%) (Auto) 8, Eosinophils (%) (Auto) 1, Basophils (%) (Auto) 0, Neutrophils # (Auto) 11.3H, Lymphocytes # (Auto) 3.7, Monocytes # (Auto) 1.4H, Eosinophils # (Auto) 0.1, Basophils # (Auto) 0.1, Sodium Level 132L , Potassium Level 3.8, Chloride Level 105, Carbon Dioxide Level 16L, Anion Gap 11, Blood Urea Nitrogen 21H, Creatinine 1.03, Estimat Glomerular Filtration Rate > 60, BUN/Creatinine Ratio 20, Glucose Level 104, Calcium Level 7.9L, Corrected Calcium 8.2L, Magnesium Level 1.7, Total Bilirubin 0.9, Aspartate Amino Transf (AST/SGOT) 60H, Alanine Aminotransferase (ALT/SGPT) 107H, Alkaline Phosphatase 93, Troponin I 0.158H, Total Protein 6.1L, Albumin 3.6, Triglycerides Level 169H , Cholesterol Level 149, LDL Cholesterol Direct 97, VLDL Cholesterol 34, HDL Cholesterol 44 10/18/19 09:25: White Blood Count 15.2H, Red Blood Count 4.28L, Hemoglobin 12.9L, Hematocrit 38L , Mean Corpuscular Volume 88, Mean Corpuscular Hemoglobin 30, Mean Corpuscular Hemoglobin Concent 34, Red Cell Distribution Width 12.2, Platelet Count 176, Mean Platelet Volume 11.3H, Prothrombin Time 15.6H, INR Comment 1.2, Activated Partial Thromboplast Time 43H 10/18/19 15:15: ECG Impression ECG Initial ECG Rhythm: V.Tach A/P-Cardiology Assessment/Admission Diagnosis Sustained ventricular tachycardia, hemodynamically significant, Chest pressure, positive cardiac enzymes, Acute respiratory failure, Acute kidney injury, Elevated LFTs, Active smoking, Meth use in the past. Plan Sustained ventricular tachycardia, hemodynamically significant, treated with amiodarone bolus. Amiodarone infusion overnight. Beta blockers. Chest pressure, positive cardiac enzymes, coronary angiography is recommended. informed consent. Aspirin, Brilinta bolus overnight. IV heparin. Acute mild respiratory failure, echocardiogram. BNP. Acute kidney injury, IV fluids. Elevated LFTs, Active smoking, smoking cessation was strongly recommended. Meth use in the past. Drug abuse was strongly discouraged. Thank you for your consultation. Please call me if you have any questions. Drew Barker MD, FACP, FACC, FSCAI, FHRS, CCDS Interventional Cardiology Cardiac Electrophysiology Vascular Medicine and Endovascular Interventions Clinical Quality Measures DVT/VTE Risk/Contraindication: Risk Factor Score Per Nursin RFS Level Per Nursing on Admit: 2=Moderate Denia BARKER MD Oct 18, 2019 10:39
[2019-10-18] MEDS ORDERED: fentaNYL INJECTION 100 MCG/2 ML AMP ONE (11:03)
[2019-10-18] MEDS ORDERED: MIDAZOLAM 5 MG/5 ML (VERSED) VIAL ONE (11:04)
[2019-10-18] MEDS ORDERED: NS IV 1000 ML 1,000 ML ONE (11:05)
--- NOTE | 2019-10-18 12:01 | Cardiac Procedure Note-CS/ASA ---
Pre-Procedure Note Pre-Op Procedure Note H&P Reviewed The H&P was reviewed, patient examined and no changes noted. Date H&P Reviewed: Oct 18, 2019 Time H&P Reviewed: 11:00 Conscious Sedation Pre-Proced Time 11:00 ASA Score 3 For ASA 3 and 4: Consider anesthesia and medical clearance. Also, for patients with a history of failed moderate sedation consider anesthesia. Airway Lungs Heart ASA score ASA 1: a normal healthy patient ASA 2: a patient with a mild systemic disease (mid diabetes, controlled hypertension, obesity ASA 3: a patient with a severe systemic disease that limits activity (angina, COPD, prior Myocardial infarction) ASA 4: a patient with an incapacitating disease that is a constant threat to life (CHF, renal failure) ASA 5: a moribund patient not expected to survive 24 hrs. (ruptured aneurysm) ASA 6: a declared brain- patient whose organs are being harvested. For emergent operations, add the letter E after the classification Mallampati Classification Grade 1 Sedation Plan Analgesia, Amnesia, Plan communicated to team members, Discussed options with patient/fam, Discussed risks with patient/fam The patient is an appropriate candidate to undergo the planned procedure, sedation, and anesthesia. The patient immediately re-assessed prior to indication. Denia PITTS MD Oct 18, 2019 12:00
--- NOTE | 2019-10-18 12:01 | Coronary Angiography Report ---
Coronary Angiography Report DATE OF PROCEDURE: 10/18/19 INDICATION: Sustained VT, hemodynamically significant. PREOPERATIVE DIAGNOSIS: Sustained VT, hemodynamically significant. POSTOPERATIVE DIAGNOSIS: Patent epicardial coronary arteries. HISTORY: This is a 38-year-old gentleman who presented with sustained VT and borderline systolic blood pressure of 90 mmHg. Converted to sinus rhythm with bolus of amiodarone. Patient complain of shortness of breath and chest pain in the ER. Positive troponin. Therefore, the patient was scheduled for coronary angiography. PROCEDURES PERFORMED: 1.Coronary angiography. 2.Left heart catheterization. 3. COMPLICATIONS: None. SPECIMENS: None. ESTIMATED BLOOD LOSS: 10 mL ANESTHESIA: Conscious sedation ANTICOAGULATION: IV heparin CONTRAST: FLUOROSCOPY: FLOUROSCOPY DOSE: PROCEDURE DETAILS: The patient is a 38 male and was brought to the labor/excavator after informed consent was taken. All the risks and complications were explained in detail; this included the risk of bleeding, vascular damage, stroke, CT and even . The patient was draped and prepped in the usual sterile fashion. Access was gained in the right radial artery with a 6 [place] sheath. Coronary angiography and left heart catheterization was performed with the [place] catheter. FINDINGS: 1.Left main: Patent. 2.LAD: Patent. 3.Left circumflex artery: Patent. 4.RCA: Patent. 5.Left heart catheterization: CONCLUSIONS: Patent epicardial coronary arteries. DC aspirin, Brilinta, heparin. Hemodynamically significant sustained VT. Drew Barker MD, FACP, FACC, [facility] Interventional Cardiology Denia BARKER MD Oct 18, 2019 12:01
[2019-10-18] MEDS ORDERED: PATIENT MAY USE OWN MEDS, ALL PO SCH (12:15)
[2019-10-18] MEDS ORDERED: AMIODARONE 200 MG (CORDARONE) TAB ONE (19:47)
[2019-10-18] MEDS: AMIODARONE 200 MG (CORDARONE) TAB PO SCH (19:51)
[2019-10-18 22:21] LABS: HEPATITIS C ANTIBODY C Non-Reactive (Non-Reactive)
[2019-10-19] VITALS (19 sets, daily range): BP systolic 129–168; BP diastolic 80–100
[2019-10-19] MEDS: NS IV 1000 ML 1,000 ML IV SCH ×3 (01:06→18:08)
[2019-10-19 03:26] LABS: BASOPHILS % (AUTO) 0 % (0-10); EOSINOPHILS # (AUTO) 0.2 10^3/uL (0.0-0.3); EOSINOPHILS % (AUTO) 2 % (0-10); HEMATOCRIT 36 % (40-54); HEMOGLOBIN 12.4 G/DL (13.3-17.7); LYMPHOCYTES # (AUTO) 2.3 X 10^3 (1.0-4.0); LYMPHOCYTES % (AUTO) 18 % (12-44); MEAN CORPUSCULAR HEMOGLOBIN 30 PG (25-34); MEAN CORPUSCULAR HGB CONC 34 G/DL (32-36); MEAN CORPUSCULAR VOLUME 88 FL (80-99); MEAN PLATELET VOLUME 11.5 FL (7.4-10.4); MONOCYTES # (AUTO) 0.9 X 10^3 (0.0-1.0); MONOCYTES % (AUTO) 7 % (0-12); NEUTROPHILS # (AUTO) 9.3 X 10^3 (1.8-7.8); NEUTROPHILS % (AUTO) 73 % (42-75); PLATELET COUNT 162 10^3/uL (130-400); WHITE BLOOD COUNT 12.7 10^3/uL (4.3-11.0)
[2019-10-19 03:46] LABS: ALANINE AMINOTRANSFERASE 79 U/L (0-55); ALBUMIN 3.4 GM/DL (3.2-4.5); ALKALINE PHOSPHATASE 87 U/L (40-136); BILIRUBIN,TOTAL 0.4 MG/DL (0.1-1.0); BUN/CREATININE RATIO 14; CALCIUM 8.2 MG/DL (8.5-10.1); CARBON DIOXIDE 17 MMOL/L (21-32); CHLORIDE 109 MMOL/L (98-107); CREATININE SERUM 0.95 MG/DL (0.60-1.30); GFR ESTIMATED > 60; GLUCOSE 101 MG/DL (70-105); MAGNESIUM 1.7 MG/DL (1.6-2.4); PHOSPHORUS 2.4 MG/DL (2.3-4.7); POTASSIUM 4.1 MMOL/L (3.6-5.0); SODIUM 137 MMOL/L (135-145)
[2019-10-19] MEDS: MAGNESIUM 1 GM/100 ML IVPB 100 ML IV SCH ×3 (03:54→04:00)
[2019-10-19] MEDS: POTASSIUM CL 10MEQ/50ML IVPB 50 ML IV SCH (03:54)
[2019-10-19] MEDS: KCL 20 MEQ TAB (K-DUR) PO SCH (03:55)
[2019-10-19] MEDS ORDERED: HEParin 1000 UNIT/ML (10ML VIAL) FOR BOLUS ONE (06:57)
[2019-10-19] MEDS ORDERED: LIDOCAINE 1% INJ 20 ML 20 ML VIAL ONE (06:57)
[2019-10-19] MEDS ORDERED: NS IV 1000 ML 1,000 ML ONE ×2 (06:57→10:28)
[2019-10-19] MEDS ORDERED: BACITRACIN INJECTION 50,000 UNIT, SODIUM CHLORIDE 0.9% IRRIGATIO 500 ML IR ONE ×2 (07:00)
[2019-10-19] MEDS ORDERED: ceFAZolin INJECTION 1,000 MG VIAL IV ONE (07:00)
[2019-10-19] MEDS: AMIODARONE 200 MG (CORDARONE) TAB PO SCH ×2 (08:05→19:36)
[2019-10-19] MEDS: ASPIRIN E.C. 81 MG (ECOTRIN) TAB PO SCH (08:05)
--- NOTE | 2019-10-19 08:48 | Diagnostic Imaging Report ---
INDICATION: Chest pain. TIME OF EXAM: 03:31 a.m. COMPARISON: Correlation is made with prior chest from 10/17/2019. FINDINGS: The heart size is normal. The pulmonary vascularity is unremarkable. The lungs are clear. No infiltrate, effusion or pneumothorax is detected. IMPRESSION: No acute cardiopulmonary process is detected. Dictated by: Dictated on workstation # [id number]
[2019-10-19] MEDS ORDERED: ceFAZolin 2 GM/NS 50 ML (COMPOUNDED) IV NR (10:15)
[2019-10-19] MEDS ORDERED: MIDAZOLAM 5 MG/5 ML (VERSED) VIAL ONE (10:16)
[2019-10-19] MEDS ORDERED: fentaNYL INJECTION 100 MCG/2 ML AMP ONE (10:16)
[2019-10-19] MEDS ORDERED: ceFAZolin INJECTION 2,000 MG ONE (10:24)
[2019-10-19] MEDS ORDERED: NS (IVPB) 100 ML ONE (10:25)
--- NOTE | 2019-10-19 11:01 | Cardiology Progress Note ---
Cardiology SOAP Progress Note Subjective: No cardiac complaints. Objective: I&O/Vital Signs 10/19/19 10/19/19 10/19/19 10/19/19 00:00 01:00 01:00 02:00 Pulse 80 83 86 86 Resp 13 17 20 B/P (MAP) 158/96 (116) 162/92 (115) 152/85 (107) Pulse Ox 99 97 95 O2 Delivery Room Air Room Air Room Air 10/19/19 10/19/19 10/19/19 10/19/19 03:00 03:30 03:32 04:00 Temp 37.0 Pulse 85 82 Resp 20 21 B/P (MAP) 142/80 (100) 151/87 (108) Pulse Ox 96 96 O2 Delivery Room Air Room Air Room Air 10/19/19 10/19/19 10/19/19 10/19/19 05:00 06:00 07:00 07:00 Pulse 75 81 80 76 Resp 21 21 23 B/P (MAP) 152/95 (114) 152/96 (114) 150/98 (115) Pulse Ox 98 98 95 O2 Delivery Room Air Room Air Room Air 10/19/19 10/19/19 10/19/19 10/19/19 07:30 08:00 08:20 09:00 Temp 37.1 Pulse 80 85 Resp 11 16 B/P (MAP) 156/100 (118) 151/95 (113) Pulse Ox 96 95 O2 Delivery Room Air Room Air Room Air 10/19/19 10:00 Pulse 76 Resp 12 B/P (MAP) 137/87 (104) Pulse Ox 97 O2 Delivery Room Air 10/19/19 00:00 Intake Total 560 ml Output Total 1425 ml Balance -865 ml Weight (Pounds): 205 Weight (Calculated Kilograms): [id number] Constitutional: appears stated age, AAO x 3; No apparent distress; well-devel oped, well-nourished Respiratory: chest is bilaterally symmetric, lungs clear to auscultation Cardiovascular: regular rate-rhythm, S1 and S2 Gastrointestional: soft, audible bowel sounds; No spleenomegaly Extremities: normal range of motion, non-tender, normal inspection; No clubbing, No cyanosis; no lower extremity edema bilateral; No significant edema Neurologic/Psychiatric: no motor/sensory deficits, alert, normal mood/affect, oriented x 3, power is 5/5 both on sides Skin: normal color, warm/dry; No rash, No ulcerations Results/Procedures: Labs Laboratory Tests 10/18/19 15:15: Hepatitis A IgM Antibody Non-Reactive, Hepatitis B Surface Antigen Non-Reactive, Hepatitis B Core IgM Antibody Non-Reactive, Hepatitis C Antibody Non-Reactive 10/19/19 03:08: White Blood Count 12.7H, Red Blood Count 4.11L, Hemoglobin 12.4L, Hematocrit 36L , Mean Corpuscular Volume 88, Mean Corpuscular Hemoglobin 30, Mean Corpuscular Hemoglobin Concent 34, Red Cell Distribution Width 12.0, Platelet Count 162, Mean Platelet Volume 11.5H, Neutrophils (%) (Auto) 73, Lymphocytes (%) (Auto) 18, Monocytes (%) (Auto) 7, Eosinophils (%) (Auto) 2, Basophils (%) (Auto) 0, Neutrophils # (Auto) 9.3H, Lymphocytes # (Auto) 2.3, Monocytes # (Auto) 0.9, Eosinophils # (Auto) 0.2, Basophils # (Auto) 0.0, Sodium Level 137, Potassium Level 4.1, Chloride Level 109H, Carbon Dioxide Level 17L, Anion Gap 11, Blood Urea Nitrogen 13, Creatinine 0.95, Estimat Glomerular Filtration Rate > 60, BUN/Creatinine Ratio 14, Glucose Level 101, Calcium Level 8.2L, Corrected Calcium 8.7, Phosphorus Level 2.4, Magnesium Level 1.7, Total Bilirubin 0.4, Aspartate Amino Transf (AST/SGOT) 35H, Alanine Aminotransferase (ALT/SGPT) 79H, Alkaline Phosphatase 87, Total Protein 6.0L, Albumin 3.4 Microbiology 10/17/19 MRSA Screen - Final, Complete MRSA not isolated A/P: Assessment/Dx: Sustained ventricular tachycardia, hemodynamically significant, Chest pressure, positive cardiac enzymes, Acute respiratory failure, Acute kidney injury, Elevated LFTs, Active smoking, Meth use in the past. Plan: Sustained ventricular tachycardia, hemodynamically significant, amiodarone 200 mg twice a day. Beta blockers. Secondary prevention ICD today. 3 doses of IV Ancef overnight. Patient will be discharged on 500 mg of Keflex 3 times a day for 5 days. Wound check in one week. Device interrogation in one month. Chest pressure, positive cardiac enzymes, coronary angiography done 10/18/2019 sh owed patent epicardial coronary arteries. DC antiplatelet therapy. DC heparin yesterday. Acute mild respiratory failure, echocardiogram. BNP. Acute kidney injury, IV fluids. Elevated LFTs, Active smoking, smoking cessation was strongly recommended. Meth use in the past. Drug abuse was strongly discouraged. Dr. Small to take over cardiology care tomorrow. Thank you for your consultation. Please call me if you have any questions. Drew Barker MD, FACP, FACC, FSCAI, FHRS, CCDS Interventional Cardiology Cardiac Electrophysiology Vascular Medicine and Endovascular Interventions Denia BARKER MD Oct 19, 2019 11:01
--- NOTE | 2019-10-19 11:01 | Cardiac Procedure Note-CS/ASA ---
Pre-Procedure Note Pre-Op Procedure Note H&P Reviewed The H&P was reviewed, patient examined and no changes noted. Date H&P Reviewed: Oct 19, 2019 Time H&P Reviewed: 10:00 Conscious Sedation Pre-Proced Time 10:00 ASA Score 3 For ASA 3 and 4: Consider anesthesia and medical clearance. Also, for patients with a history of failed moderate sedation consider anesthesia. Airway Lungs Heart ASA score ASA 1: a normal healthy patient ASA 2: a patient with a mild systemic disease (mid diabetes, controlled hypertension, obesity ASA 3: a patient with a severe systemic disease that limits activity (angina, COPD, prior Myocardial infarction) ASA 4: a patient with an incapacitating disease that is a constant threat to life (CHF, renal failure) ASA 5: a moribund patient not expected to survive 24 hrs. (ruptured aneurysm) ASA 6: a declared brain- patient whose organs are being harvested. For emergent operations, add the letter E after the classification Mallampati Classification Grade 1 Sedation Plan Analgesia, Amnesia, Plan communicated to team members, Discussed options with patient/fam, Discussed risks with patient/fam The patient is an appropriate candidate to undergo the planned procedure, sedation, and anesthesia. The patient immediately re-assessed prior to indication. Denia PITTS MD Oct 19, 2019 11:01
[2019-10-19] MEDS ORDERED: proPOfol 200 MG/20 ML (DIPRIVAN) VIAL IV ONE (11:56)
[2019-10-19] MEDS ORDERED: NS IV 1000 ML 1,000 ML IV SCH (12:01)
[2019-10-19] MEDS ORDERED: METO-370 PO (12:05)
[2019-10-19] MEDS ORDERED: CEPH-507 PO (12:05)
[2019-10-19] MEDS ORDERED: AMIO200T4 PO (12:05)
--- NOTE | 2019-10-19 12:13 | ICD Implantation ---
Single Chamber ICD Implant DATE OF SERVICE: 10/19/2019 SINGLE CHAMBER ICD IMPLANTATION CARDIAC GROUP BILLING COORDINATOR: Drew Barker MD INDICATION: Hemodynamically significant, sustained VT. PREOPERATIVE DIAGNOSES: Hemodynamically significant, sustained VT. POSTOPERATIVE DIAGNOSES: Successful single-chamber ICD implantation. HISTORY: This is a 38-year-old gentleman who presented with hemodynamically significant sustained VT at the rate of 241 BPM. Amiodarone 150 mg IV bolus converted the patient to sinus rhythm. Coronary angiography done yesterday did not show any significant CAD. Single-chamber ICD implantation for secondary prevention is recommended. PROCEDURE PERFORMED: 1. Single-chamber ICD implantation. 2. DFT testing. COMPLICATIONS: None. ESTIMATED BLOOD LOSS: 20 mL. SPECIMENS: None. ANESTHESIA: Conscious sedation. ORAL ANTICOAGULATION: None. FLUOROSCOPY TIME: 5.1 minutes. FLUOROSCOPY DOSE: 39 mgy. CONTRAST DOSE: None. PROCEDURE DETAILS: After all the questions were answered, an informed consent was taken. All the risks and complication were explained in detail. The patient was brought to the EP lab. The patient's right and left chest was prepped and draped in the usual sterile fashion. A 2-inch horizontal incision was made 1 cm below the clavicle and dissection carried down to the pectoralis fascia. IV antibiotics were administered prior to first incision. Under fluoroscopic guidance, access was gained in the axillary vein and a regular J-wire was placed. We then introduced a sheath into the axillary vein. A ICD lead was inserted. This is a single- coiled ICD lead. The RV lead was inserted across the tricuspid valve to an apical septal portion of the RV. The lead position was checked in [place] and PATINO vi ew. The screw was deployed and lead connected to the gameplay programmer. Good sensing and pacing thresholds were obtained. Diaphragmatic pacing was ruled out. The lead was secured with 2-0 Vicryl nonabsorbable sutures. The lead was secured to the underlying muscle and fascia. We then took an ICD generator and the lead was connected to the device in a hermetic fashion. The device and it was placed in the pocket. Aggressive irrigation with normal saline solution was done. Interrogation of the device revealed good integrity of the leads and connection. The wound was closed using 2 layers. The first layer was an interrupted 2-0 Vicryl. The second layer was an uninterrupted 4-0 Vicryl suture. Half inch Steri-Strips and a small dressing was then applied to the wound. DFT testing was done with anesthesia support. The induction mechanism was a T-shock. The first T-shock was at 300 milliseconds at one joule. Nonsustained VF was noted. Numerous attempts, however VF was always not sustained. Therefore complete DFT testings were not done. DEVICE INFORMATION: ICD VR VISIA MRI AF S US/OUS DF4 [employer], model number [id number], serial number [id number] RV lead, model number [id number] [id number], length 62, serial number [id number]. INTRAOPERATIVE DEVICE TESTING: Right ventricular capture threshold 0.4 V at 0.5 ms. Impedance 615 ohms. R- wave 7.6 mV. PLAN: We will continue with two more dosages of IV antibiotics. We will check a chest x-ray and interrogate the device in the morning. An EKG will be done as well. Drew Barker MD, [facility] Cardiac Electrophysiology Denia BARKER MD Oct 19, 2019 12:13
[2019-10-19] MEDS ORDERED: PATIENT MAY USE OWN MEDS, ALL PO SCH (12:15)
--- NOTE | 2019-10-19 12:53 | Diagnostic Imaging Report ---
INDICATION: Status post ICD placement. COMPARISON: 10/19/2019 FINDINGS: Single frontal view of the chest demonstrates normal heart size and pulmonary vascularity. New left-sided ICD is noted. The lungs are well aerated and clear. No large pleural effusion or pneumothorax is seen. The visualized osseous structures show no acute abnormalities. IMPRESSION: 1. New left-sided ICD. 2. No acute cardiopulmonary process. Dictated by: Dictated on workstation # [id number]
--- NOTE | 2019-10-19 15:23 | Progress Note ---
Subjective Subjective/Events-last exam Afebrile, defibrillator placed this morning. Sleeping now postprocedure. Objective Exam Last Set of Vital Signs Vital Signs Date Time Temp Pulse Resp B/P (MAP) Pulse Ox O2 Delivery O2 Flow Rate FiO2 10/19/19 14:00 75 18 137/82 (100) 95 Room Air 10/19/19 07:30 37.1 10/17/19 19:32 12.00 Capillary Refill : Less Than 3 Seconds I&O Intake and Output 10/19/19 00:00 Intake Total 1050 ml Output Total 3075 ml Balance -2025 ml Intake Oral 800 ml IV Total 250 ml Output Urine Total 3075 ml General: Other (sleeping) Lungs: Clear to Auscultation Heart: Regular Rate, No Murmurs Abdomen: Normal Bowel Sounds Extremities: No Edema Results/Procedures Lab Laboratory Tests 10/19/19 03:08: White Blood Count 12.7H, Red Blood Count 4.11L, Hemoglobin 12.4L, Hematocrit 36L , Mean Corpuscular Volume 88, Mean Corpuscular Hemoglobin 30, Mean Corpuscular Hemoglobin Concent 34, Red Cell Distribution Width 12.0, Platelet Count 162, Mean Platelet Volume 11.5H, Neutrophils (%) (Auto) 73, Lymphocytes (%) (Auto) 18, Monocytes (%) (Auto) 7, Eosinophils (%) (Auto) 2, Basophils (%) (Auto) 0, Neutrophils # (Auto) 9.3H, Lymphocytes # (Auto) 2.3, Monocytes # (Auto) 0.9, Eosinophils # (Auto) 0.2, Basophils # (Auto) 0.0, Sodium Level 137, Potassium Level 4.1, Chloride Level 109H, Carbon Dioxide Level 17L, Anion Gap 11, Blood Urea Nitrogen 13, Creatinine 0.95, Estimat Glomerular Filtration Rate > 60, BUN/Creatinine Ratio 14, Glucose Level 101, Calcium Level 8.2L, Corrected Calcium 8.7, Phosphorus Level 2.4, Magnesium Level 1.7, Total Bilirubin 0.4, Aspartate Amino Transf (AST/SGOT) 35H, Alanine Aminotransferase (ALT/SGPT) 79H, Alkaline Phosphatase 87, Total Protein 6.0L, Albumin 3.4 Microbiology 10/17/19 MRSA Screen - Final, Complete MRSA not isolated Assessment/Plan Assessment/Plan (1) Ventricular tachycardia Status: Acute Assessment & Plan: Converted with amiodarone, currently on amiodarone drip, appreciate Cardiology recommendations. 10/19 changed to PO amio, debrillator placed (2) Chest pain Status: Acute Assessment & Plan: Catheterization yesterday with no significant blockages Qualifiers: Qualified Codes: R07.9 - Chest pain, unspecified (3) Methamphetamine abuse Status: Acute Assessment & Plan: Discussed risks and recommended cessation. (4) Elevated liver enzymes Status: Acute Assessment & Plan: Check hepatitis panel 10/19 hep negative, trending down (5) Acute kidney injury Status: Resolved Assessment & Plan: Resolved overnight with IVF (6) Bipolar disorder Status: Chronic Assessment & Plan: Hold latuda for now, will research if it can cause long QT as his EKG did have long QT- this was also after amio, so unclear etiology. 10/19 resume Latuda and monitor EKG (7) Leukocytosis Assessment & Plan: Possibly reactive, no evidence of infection. Decreased today, but still elevated, monitor. 10/19 decreasing, on antibiotics due to ICD placement (8) Hyponatremia Status: Resolved (9) Elevated troponin Status: Acute Assessment & Plan: Plan for cath today per Cardiology. 10/19 cath clear, no antiplatelet needed (10) DVT prophylaxis Status: Acute Assessment & Plan: SCDs Clinical Quality Measures DVT/VTE Risk/Contraindication: Risk Factor Score Per Nursin RFS Level Per Nursing on Admit: 2=Moderate LUIS YAÑEZ MD Oct 19, 2019 15:23
[2019-10-19] MEDS: ceFAZolin INJECTION 1,000 MG in WATER (STERILE) FOR INJECTION 10 ML IV SCH (17:56)
[2019-10-19] MEDS ORDERED: LURASIDONE 80 MG (LATUDA) TABLET NON-FORMULARY PO SCH (18:00)
[2019-10-19] MEDS ORDERED: NON-FORMULARY MEDICATION 1 EA EA (Lurasidone HCl (Latuda) 80 MG) PO SCH (21:00)
[2019-10-19] MEDS ORDERED: LACTATED RINGERS 0 ML IV ONE (21:46)
[2019-10-20] VITALS: BP 142/63
[2019-10-20] MEDS: NS IV 1000 ML 1,000 ML IV SCH (00:39)
[2019-10-20] MEDS: ceFAZolin INJECTION 1,000 MG in WATER (STERILE) FOR INJECTION 10 ML IV SCH ×2 (02:00→09:39)
[2019-10-20 03:35] LABS: BASOPHILS % (AUTO) 0 % (0-10); EOSINOPHILS # (AUTO) 0.3 10^3/uL (0.0-0.3); EOSINOPHILS % (AUTO) 2 % (0-10); HEMATOCRIT 37 % (40-54); HEMOGLOBIN 12.8 G/DL (13.3-17.7); LYMPHOCYTES # (AUTO) 1.9 X 10^3 (1.0-4.0); LYMPHOCYTES % (AUTO) 14 % (12-44); MEAN CORPUSCULAR HEMOGLOBIN 30 PG (25-34); MEAN CORPUSCULAR HGB CONC 34 G/DL (32-36); MEAN CORPUSCULAR VOLUME 87 FL (80-99); MONOCYTES # (AUTO) 1.3 X 10^3 (0.0-1.0); MONOCYTES % (AUTO) 9 % (0-12); NEUTROPHILS # (AUTO) 10.2 X 10^3 (1.8-7.8); NEUTROPHILS % (AUTO) 75 % (42-75); PLATELET COUNT 186 10^3/uL (130-400); RED CELL DISTRIBUTION WIDTH 11.8 % (10.0-14.5); WHITE BLOOD COUNT 13.7 10^3/uL (4.3-11.0)
[2019-10-20 03:55] LABS: ALANINE AMINOTRANSFERASE 58 U/L (0-55); ALBUMIN 3.4 GM/DL (3.2-4.5); ALKALINE PHOSPHATASE 93 U/L (40-136); BILIRUBIN,TOTAL 0.3 MG/DL (0.1-1.0); BUN/CREATININE RATIO 16; CALCIUM 8.3 MG/DL (8.5-10.1); CARBON DIOXIDE 17 MMOL/L (21-32); CHLORIDE 107 MMOL/L (98-107); CREATININE SERUM 1.03 MG/DL (0.60-1.30); GFR ESTIMATED > 60; GLUCOSE 107 MG/DL (70-105); MAGNESIUM 1.7 MG/DL (1.6-2.4); PHOSPHORUS 3.5 MG/DL (2.3-4.7); POTASSIUM 3.8 MMOL/L (3.6-5.0); SODIUM 135 MMOL/L (135-145); TOTAL PROTEIN 6.1 GM/DL (6.4-8.2)
[2019-10-20 04:00] VITALS: BP 138/78
[2019-10-20] MEDS: AMIODARONE 200 MG (CORDARONE) TAB PO SCH (08:18)
[2019-10-20] MEDS: ASPIRIN E.C. 81 MG (ECOTRIN) TAB PO SCH (08:18)
--- NOTE | 2019-10-20 09:50 | Cardiology Progress Note ---
Subjective Date Seen by Provider: Oct 20, 2019 Time Seen by Provider: 09:49 Subjective/Events-last exam patient is sitting in bed, no new complaint. Denied any chest pain Review of Systems General: No Chills, No Night Sweats, No Fatigue, No Malaise, No Appetite, No Other HEENT: No Head Aches, No Visual Changes, No Eye Pain, No Ear Pain, No Dysphasia, No Sinus Congestion, No Post Nasal Drip, No Sore Throat, No Other Pulmonary: No Dyspnea, No Cough, No Pleuritic Chest Pain, No Other Cardiovascular: No: Chest Pain, Palpitations, Orthopnea, Paroxysmal Noc. Dyspnea, Edema, Lt Headedness, Other Objective-Cardiology Exam Last Set of Vital Signs Vital Signs 10/17/19 10/20/19 10/20/19 10/20/19 19:32 04:00 08:00 08:20 Temp 36.8 Pulse 86 Resp 18 B/P (MAP) 138/78 (98) Pulse Ox 96 O2 Delivery Room Air O2 Flow Rate 12.00 Capillary Refill : Less Than 3 Seconds I&O Intake and Output 10/20/19 00:00 Intake Total 3590 ml Output Total 4350 ml Balance -760 ml Intake Oral 1390 ml IV Total 2200 ml Output Urine Total 4350 ml General: Other (sleeping) HEENT: Atraumatic, PERRLA Neck: Supple, No JVD, No Thyromegaly Lungs: Clear to Auscultation Heart: Regular Rate, Normal S1, Normal S2, No Murmurs Abdomen: Normal Bowel Sounds Extremities: No Edema Skin: No Rashes, No Breakdown, No Significant Lesion Neuro: Normal Gait, Normal Speech, Strength at 5/5 X4 Ext, Normal Tone, Sensation Intact Psych/Mental Status: Mental Status NL, Mood NL Results Lab Laboratory Tests 10/20/19 03:24 A/P-Cardiology Admission Diagnosis Ventricular tachycardia Acute renal failure Chest pain Cardiac pacemaker Assessment/Plan Sustained ventricular tachycardia, sudden , status post single-chamber ICD implant done by Dr. Barker. Interrogation done today and good sensing and capture activity reported by Dr. Barker. Okay for discharge. Wound is healing well Chest pain, better at this time. Acute renal failure, better at this time. Monitor renal function Elevated liver enzymes, better at this time. Clinical Quality Measures DVT/VTE Risk/Contraindication: Risk Factor Score Per Nursin RFS Level Per Nursing on Admit: 2=Moderate CHRISTIANO BLACKWOOD MD Oct 20, 2019 09:50
--- NOTE | 2019-10-20 10:20 | Anesthesia-General Post-Op ---
MAC Patient Condition Mental Status/LOC: Same as Preop Cardiovascular: Satisfactory Nausea/Vomiting: Absent Respiratory: Satisfactory Pain: Controlled Complications: Absent Post Op Complications Complications None Follow Up Care/Instructions Patient Instructions None needed. Anesthesiology Discharge Order Discharge Order Patient is doing well, no complaints, stable vital signs, no apparent adverse anesthesia problems. He is ready for discharge to home per patient. CHILO LUNA DO Oct 20, 2019 10:20
--- NOTE | 2019-10-20 10:22 | Discharge Summary ---
Discharge Summary Hospital Course Problems/Diagnosis: (1) Ventricular tachycardia Status: Acute Assessment & Plan: Converted with amiodarone, currently on amiodarone drip, appreciate Cardiology recommendations. 10/19 changed to PO amio, debrillator placed (2) Chest pain Status: Acute Assessment & Plan: Catheterization yesterday with no significant blockages Qualifiers: Qualified Codes: R07.9 - Chest pain, unspecified (3) Methamphetamine abuse Status: Acute Assessment & Plan: Discussed risks and recommended cessation. (4) Elevated liver enzymes Status: Acute Assessment & Plan: Check hepatitis panel 10/19 hep negative, trending down (5) Acute kidney injury Status: Resolved Resolution Date/Time: 10/18/19 @ 14:59 Assessment & Plan: Resolved overnight with IVF (6) Bipolar disorder Status: Chronic Assessment & Plan: Hold latuda for now, will research if it can cause long QT as his EKG did have long QT- this was also after amio, so unclear etiology. 10/19 resume Latuda and monitor EKG 10/20 EKG with QT still 500, Cardiology recommends avoiding latuda (can increase QT slightly per Pharmacy after investigation) (7) Leukocytosis Assessment & Plan: Possibly reactive, no evidence of infection. Decreased today, but still elevated, monitor. 10/19 decreasing, on antibiotics due to ICD placement (8) Hyponatremia Status: Resolved Resolution Date/Time: 10/19/19 @ 15:23 (9) Elevated troponin Status: Acute Assessment & Plan: Plan for cath today per Cardiology. 10/19 cath clear, no antiplatelet needed Hospital Course Date of Admission: Oct 17, 2019 at 19:33 Admission Diagnosis : Family Physician/Provider: Alex Marcum MD Date of Discharge: 10/20/19 Discharge Diagnosis: See problem list Hospital Course: See problem list Labs and Pending Lab Test: Laboratory Tests 10/20/19 03:24: White Blood Count 13.7H, Red Blood Count 4.30L, Hemoglobin 12.8L, Hematocrit 37L , Mean Corpuscular Volume 87, Mean Corpuscular Hemoglobin 30, Mean Corpuscular Hemoglobin Concent 34, Red Cell Distribution Width 11.8, Platelet Count 186, Mean Platelet Volume 11.0H, Neutrophils (%) (Auto) 75, Lymphocytes (%) (Auto) 14, Monocytes (%) (Auto) 9, Eosinophils (%) (Auto) 2, Basophils (%) (Auto) 0, Neutrophils # (Auto) 10.2H, Lymphocytes # (Auto) 1.9, Monocytes # (Auto) 1.3H, Eosinophils # (Auto) 0.3, Basophils # (Auto) 0.0, Sodium Level 135, Potassium Level 3.8, Chloride Level 107, Carbon Dioxide Level 17L, Anion Gap 11, Blood Urea Nitrogen 16, Creatinine 1.03, Estimat Glomerular Filtration Rate > 60, BUN/Creatinine Ratio 16, Glucose Level 107H, Calcium Level 8.3L, Corrected Calcium 8.8, Phosphorus Level 3.5, Magnesium Level 1.7, Total Bilirubin 0.3, Aspartate Amino Transf (AST/SGOT) 24, Alanine Aminotransferase (ALT/SGPT) 58H, Alkaline Phosphatase 93, Total Protein 6.1L, Albumin 3.4 Microbiology 10/17/19 MRSA Screen - Final, Complete MRSA not isolated Home Meds Active Metoprolol Succinate 50 Mg Tab.er.24h 50 Mg PO DAILY 90 Days Keflex (Cephalexin) 500 Mg Capsule 500 Mg PO TID 5 Days Amiodarone HCl 200 Mg Tablet 200 Mg PO BID 90 Days Reported Latuda (Lurasidone HCl) 80 Mg Tablet 80 Mg PO HS Assessment/Pt DC Instructions Follow up with Dr. Marcum on 10/23 at 11 am. Follow up with [facility] to discuss medication change. Discharge Physical Examination Allergies: Coded Allergies: No Known Drug Allergies (Unverified , 10/13/18) General Appearance: No Apparent Distress, WD/WN Respiratory: Lungs Clear, Normal Breath Sounds Cardiovascular: Regular Rate, Rhythm, No Murmur Extremity: No Pedal Edema Skin: Normal Color, Warm/Dry Copy Copies To 1: ALEX MARCUM MD Clinical Quality Measures DVT/VTE Risk/Contraindication: Risk Factor Score Per Nursin RFS Level Per Nursing on Admit: 2=Moderate LUIS YAÑEZ MD Oct 20, 2019 10:22
== END 2019-10-20 11:05 | disposition home or self-care (01) | DRG 224 ==
LOC: EDUNIT# 18:54 → ER 18:55 → ICU 19:33
PROVIDERS: ADMIT Family Medicine; ATTEND Family Medicine
PROC: 4A023N7 Measurement of Cardiac Sampling and Pressure, Left Heart, Percutaneous Approach (ICD-10-PCS; 2019-10-18)
PROC: B2111ZZ Fluoroscopy of Multiple Coronary Arteries using Low Osmolar Contrast (ICD-10-PCS; 2019-10-18)
PROC: 0JH608Z Insertion of Defibrillator Generator into Chest Subcutaneous Tissue and Fascia, Open Approach (ICD-10-PCS; principal; 2019-10-19)
PROC: 02HK3KZ Insertion of Defibrillator Lead into Right Ventricle, Percutaneous Approach (ICD-10-PCS; 2019-10-19)
DX: I47.2 Ventricular tachycardia (principal); J96.00 Acute respiratory failure, unspecified whether with hypoxia or hypercapnia; N17.9 Acute kidney failure, unspecified; E87.1 Hypo-osmolality and hyponatremia; F17.210 Nicotine dependence, cigarettes, uncomplicated; F17.290 Nicotine dependence, other tobacco product, uncomplicated; F15.10 Other stimulant abuse, uncomplicated; F31.9 Bipolar disorder, unspecified; F41.9 Anxiety disorder, unspecified; R74.8 Abnormal levels of other serum enzymes; R78.89 Finding of other specified substances, not normally found in blood
CPT/HCPCS: 33249; 36221; 36415; 71045; 80053; 80061; 80074; 80306; 80320; 83735; 83874; 83880; 84100; 84484; 85007; 85025; 85027; 85610; 85730; 87081; 93005; 93041; 93306; 93458; 93567; 93641; 96374; 96375

== ENCOUNTER 2020-01-08 22:49 | Emergency (ER) | payer MEDICAID, OTHER ==
[~2020-01-08] VITALS: Ht 183 cm; Wt 92.3 kg
[~2020-01-08 22:49] MED LIST changes: +AMIO200T4 PO; +CEPH-507 PO; +LURA80TA3 PO; +METO50TA7 PO
--- OUTSIDE RECORDS SUMMARY | 2020-01-08 22:55 | XMS REPORT | Continuity of Care Document ---
Author Organization Unknown Address Unknown Phone Unavailable Allergies Active Description Code Type Severity Reaction Onset Reported/Identified Relationship to Patient Clinical Status Yes No Known Drug Allergies [id number] Drug Allergy Unknown N/A 10/13/2018 Medications There is no data. Problems Date Dx Coded Attending Type Code Diagnosis Diagnosed By 10/13/2018 BERNOT, JERONIMO Ot N20.2 CALCULUS OF KIDNEY WITH CALCULUS OF URET 10/13/2018 BERNOT, JERONIMO Ot R10.32 LEFT LOWER QUADRANT PAIN 10/13/2018 BERNOT, JERONIMO Ot Z87.442 PERSONAL HISTORY OF URINARY CALCULI 10/17/2018 BERNOT, JERONIMO Ot N20.2 CALCULUS OF KIDNEY WITH CALCULUS OF URET 10/17/2018 BERNOT, JERONIMO Ot R10.32 LEFT LOWER QUADRANT PAIN 10/17/2018 BERNOT, JERONIMO Ot Z87.442 PERSONAL HISTORY OF URINARY CALCULI 02/05/2019 BERNOT, JERONIMO Ot F15.10 OTHER STIMULANT ABUSE, UNCOMPLICATED 02/05/2019 BERNOT, JERONIMO Ot F17.290 NICOTINE DEPENDENCE, OTHER TOBACCO PRODU 02/05/2019 BERNOT, JERONIMO Ot F31.9 BIPOLAR DISORDER, UNSPECIFIED 02/05/2019 BERNOT, JERONIMO Ot R53.83 OTHER FATIGUE 02/08/2019 BERNOT, JERONIMO Ot F15.10 OTHER STIMULANT ABUSE, UNCOMPLICATED 02/08/2019 BERNOT, JERONIMO Ot F17.290 NICOTINE DEPENDENCE, OTHER TOBACCO PRODU 02/08/2019 BERNOT, JERONIMO Ot F31.9 BIPOLAR DISORDER, UNSPECIFIED 02/08/2019 BERNOT, JERONIMO Ot R53.83 OTHER FATIGUE 10/19/2019 PARI RUELAS, LUIS Amaro Ot E87 .1 HYPO-OSMOLALITY AND HYPONATREMIA 10/19/2019 PARI RUELAS, LUIS Amaro Ot F15.10 OTHER STIMULANT ABUSE, UNCOMPLICATED 10/19/2019 PARI RUELAS, LUIS Amaro Ot F17.210 NICOTINE DEPENDENCE, CIGARETTES, UNCOMPL 10/19/2019 LUIS YAÑEZ MD Ot F17.290 NICOTINE DEPENDENCE, OTHER TOBACCO PRODU 10/19/2019 LUIS YAÑEZ MD Ot F31 .9 BIPOLAR DISORDER, UNSPECIFIED 10/19/2019 LUIS YAÑEZ MD Ot F41 .9 ANXIETY DISORDER, UNSPECIFIED 10/19/2019 LUIS YAÑEZ MD Ot I47 .2 VENTRICULAR TACHYCARDIA 10/19/2019 LUIS YAÑEZ MD Ot J96.00 ACUTE RESPIRATORY FAILURE, UNSP W HYPOXI 10/19/2019 LUIS YAÑEZ MD Ot N17 .9 ACUTE KIDNEY FAILURE, UNSPECIFIED 10/19/2019 LUIS YAÑEZ MD Ot R74 .8 ABNORMAL LEVELS OF OTHER SERUM ENZYMES 10/19/2019 LUIS YAÑEZ MD Ot R78.89 FINDING OF OTH SUBSTANCES, NOT NORMALLY 10/20/2019 LUIS YAÑEZ MD Ot E87 .1 HYPO-OSMOLALITY AND HYPONATREMIA 10/20/2019 LUIS YAÑEZ MD Ot F15.10 OTHER STIMULANT ABUSE, UNCOMPLICATED 10/20/2019 LUIS YAÑEZ MD N Ot F17.210 NICOTINE DEPENDENCE, CIGARETTES, UNCOMPL 10/20/2019 LUIS YAÑEZ MD Ot F17.290 NICOTINE DEPENDENCE, OTHER TOBACCO PRODU 10/20/2019 LUIS YAÑEZ MD Ot F31 .9 BIPOLAR DISORDER, UNSPECIFIED 10/20/2019 LUIS YAÑEZ MD Ot F41 .9 ANXIETY DISORDER, UNSPECIFIED 10/20/2019 LUIS YAÑEZ MD Ot I47 .2 VENTRICULAR TACHYCARDIA 10/20/2019 LUIS YAÑEZ MD Ot J96.00 ACUTE RESPIRATORY FAILURE, UNSP W HYPOXI 10/20/2019 LUIS YAÑEZ MD Ot N17 .9 ACUTE KIDNEY FAILURE, UNSPECIFIED 10/20/2019 LUIS YAÑEZ MD Ot R74 .8 ABNORMAL LEVELS OF OTHER SERUM ENZYMES 10/20/2019 LUIS YAÑEZ MD Ot R78.89 FINDING OF OTH SUBSTANCES, NOT NORMALLY 10/20/2019 LUIS YAÑEZ MD Ot E87 .1 HYPO-OSMOLALITY AND HYPONATREMIA 10/20/2019 LUIS YAÑEZ MD N Ot F15.10 OTHER STIMULANT ABUSE, UNCOMPLICATED 10/20/2019 LUIS YAÑEZ MD Ot F17.210 NICOTINE DEPENDENCE, CIGARETTES, UNCOMPL 10/20/2019 LUIS YAÑEZ MD Ot F17.290 NICOTINE DEPENDENCE, OTHER TOBACCO PRODU 10/20/2019 LUIS YAÑEZ MD Ot F31 .9 BIPOLAR DISORDER, UNSPECIFIED 10/20/2019 LUIS YAÑEZ MD Ot F41 .9 ANXIETY DISORDER, UNSPECIFIED 10/20/2019 LUIS YAÑEZ MD Ot I47 .2 VENTRICULAR TACHYCARDIA 10/20/2019 LUIS YAÑEZ MD Ot J96.00 ACUTE RESPIRATORY FAILURE, UNSP W HYPOXI 10/20/2019 LUIS YAÑEZ MD Ot N17 .9 ACUTE KIDNEY FAILURE, UNSPECIFIED 10/20/2019 LUIS YAÑEZ MD Ot R74 .8 ABNORMAL LEVELS OF OTHER SERUM ENZYMES 10/20/2019 LUIS YAÑEZ MD Ot R78.89 FINDING OF OTH SUBSTANCES, NOT NORMALLY Procedures Code Description Performed By Per formed On [id number] DC ASURE OF CARDIAC SAMPL PRESSURE, L H 10/18/2019 [id number] FL UOROSCOPY OF MULT COR ART USING L OSM 10/18/2019 [id number] IN SERTION OF DEFIB LEAD INTO R VENTRICLE 10/19/2019 [id number] IN SERT OF DEFIB GEN INTO CHEST SUBCU/FAS 10/19/2019 Results Test Result Range [facility] - 05/30/18 15:49 GLUCOSE 66 mg/dL 65-99 UREA NITROGEN (BUN) 14 mg/dL 7-25 CREATININE 1.06 mg/dL 0.60-1.35 eGFR NON-AFR. BRUNEIAN 88 mL/min/1.73m2 > OR = 60 eGFR 102 mL/min/1.73m2 > OR = 60 BUN/CREATININE RATIO NOT APPLICABLE (calc) 6-22 SODIUM 137 mmol/L 135-146 POTASSIUM 4.1 mmol/L 3.5-5.3 CHLORIDE 103 mmol/L 98-110 CARBON DIOXIDE 27 mmol/L 20-32 CALCIUM 9.6 mg/dL 8.6-10.3 PROTEIN, TOTAL 7.4 g/dL 6.1-8.1 ALBUMIN 4.7 g/dL 3.6-5.1 GLOBULIN 2.7 g/dL (calc) 1.9-3.7 ALBUMIN/GLOBULIN RATIO 1.7 (calc) 1.0-2. 5 BILIRUBIN, TOTAL 0.4 mg/dL 0.2-1.2 ALKALINE PHOSPHATASE 96 U/L 40-115 AST 24 U/L 10-40 ALT 24 U/L 9-46 Complete blood count (CBC) with automate d white blood cell (WBC) differential - 10/13/18 21:18 Blood leukocytes automated count (number/volume) 12.8 10*3/uL 4.3-11.0 Blood erythrocytes automated count (number/volume) 5.27 10*6/uL 4.35-5.85 Venous blood hemoglobin measurement (mass/volume) 15.9 g/dL 13.3-17.7 Blood hematocrit (volume fraction) 45 % 40-54 Automated erythrocyte mean corpuscular volume 85 [ foz_us] 80-99 Automated erythrocyte mean corpuscular h emoglobin (mass per erythrocyte) 30 pg 25-34 Automated erythrocyte mean corpuscular h emoglobin concentration measurement (mass/volume) 35 g/dL 32-36 Automated erythrocyte distribution width ratio 12. 2 % 10.0- 14.5 Automated blood platelet count (count/volume) 239 10*3/uL 130-400 Automated blood platelet mean volume measurement 10.8 [foz_us] 7.4-10.4 Automated blood neutrophils/100 leukocytes 70 % 42-75 Automated blood lymphocytes/100 leukocytes 22 % 12-44 Blood monocytes/100 leukocytes 7 % 0-12 Automated blood eosinophils/100 leukocytes 1 % 0-10 Automated blood basophils/100 leukocytes 0 % 0-10 Blood neutrophils automated count (number/volume) 9.0 10*3 1.8-7.8 Blood lymphocytes automated count (number/volume) 2.8 10*3 1.0-4.0 Blood monocytes automated count (number/volume) 0. 9 10*3 0.0-1.0 Automated eosinophil count 0.1 10*3/uL 0 .0-0.3 Automated blood basophil count (count/volume) 0.0 10*3/uL 0.0-0.1 Comprehensive metabolic panel - 10/13/18 21:18 Serum or plasma sodium measurement (moles/volume) 139 mmol/L 135-145 Serum or plasma potassium measurement (moles/volume) 4.0 mmol/L 3.6-5.0 Serum or plasma chloride measurement (moles/volume) 104 mmol/L 98-107 Carbon dioxide 22 mmol/L 21-32 Serum or plasma anion gap determination (moles/volume) 13 mmol/L 5-14 Serum or plasma urea nitrogen measurement (mass/volume ) 13 mg/dL 7-18 Serum or plasma creatinine measurement (mass/volume) 1.38 mg/dL 0.60-1.30 Serum or plasma urea nitrogen/creatinine mass ratio 9 NRG Serum or plasma creatinine measurement w ith calculation of estimated glomerular filtration rate 57 NRG Serum or plasma glucose measurement (mass/volume) 140 mg/dL 70-105 Serum or plasma calcium measurement (mass/volume) 9.4 mg/dL 8.5-10.1 Serum or plasma total bilirubin measurement (mass/volu me) 0.3 mg/dL 0.1-1.0 Serum or plasma alkaline phosphatase ramón surement (enzymatic activity/volume) 88 U/L 40-136 Serum or plasma aspartate aminotransfera se measurement (enzymatic activity/volume) 24 U/L 5-34 Serum or plasma alanine aminotransferase measurement (enzymatic activity/volume) 32 U/L 0-55 Serum or plasma protein measurement (mass/volume) 7.6 g/dL 6.4-8.2 Serum or plasma albumin measurement (mass/volume) 4.5 g/dL 3.2-4.5 CALCIUM CORRECTED 9.0 mg/dL 8.5-10.1 Serum or plasma amylase measurement (enz ymatic activity/volume) - 10/13/18 21:18 Serum or plasma amylase measurement (enzymatic activit y/volume) 28 U/L 25-125 Lipase - 10/13/18 21:18 Lipase 15 U/L 8-78 Complete urinalysis with reflex to cultu re - 10/13/18 22:31 Urine color determination YELLOW NRG Urine clarity determination SL CLOUDY N RG Urine pH measurement by test strip 6 5-9 Specific gravity of urine by test strip 1.015 1.016-1.022 Urine protein assay by test strip, semi-quantitative 1+ NEGATIVE Urine glucose detection by automated test strip NE GATIVE NEGATIVE Erythrocytes detection in urine sediment by light micr oscopy 5+ NEGATIVE Urine ketones detection by automated test strip NE GATIVE NEGATIVE Urine nitrite detection by test strip NEGATIVE NEGATIVE Urine total bilirubin detection by test strip NEGA TIVE NEGATIVE Urine urobilinogen measurement by automated test strip (mass/volume) NORMAL NORMAL Urine leukocyte esterase detection by dipstick NEG ATIVE NEGATIVE Automated urine sediment erythrocyte cou nt by microscopy (number/high power field) [HPF] NRG Automated urine sediment leukocyte count by microscopy (number/high power field) [HPF] NRG Bacteria detection in urine sediment by light microsco py TRACE NRG Squamous epithelial cells detection in u rine sediment by light microscopy 0-2 NRG Crystals detection in urine sediment by light microsco py NONE NRG Casts detection in urine sediment by light microscopy NONE NRG Mucus detection in urine sediment by light microscopy MODERATE NRG Complete urinalysis with reflex to culture NO NRG Urine drug screening test - 10/13/18 22: 31 Urine phencyclidine detection by screening method NEGATIVE NEGATIVE Urine benzodiazepines detection by screening method NEGATIVE NEGATIVE Urine cocaine detection NEGATIVE NEGATI VE Urine amphetamines detection by screening method P OSITIVE NEGATIVE Urine methamphetamine detection by screening method NEGATIVE NEGATIVE Urine cannabinoids detection by screening method N EGATIVE NEGATIVE Urine opiates detection by screening method NEGATI VE NEGATIVE Urine barbiturates detection NEGATIVE N EGATIVE Screening urine tricyclic antidepressants detection NEGATIVE NEGATIVE Urine methadone detection by screening method NEGA TIVE NEGATIVE Urine oxycodone detection NEGATIVE NEGA TIVE Urine propoxyphene detection NEGATIVE N EGATIVE Chlamydia DNA amp probe, urine - 9 22:31 Chlamydia DNA amp probe, urine Not Detected Not Detected Urine Neisseria gonorrhoeae DNA assay - 10/13/18 22:31 Gonorrhea amp DNA-urine Not Detected No t Detected Complete blood count (CBC) with automate d white blood cell (WBC) differential - 02/05/19 17:15 Blood leukocytes automated count (number/volume) 13.6 10*3/uL 4.3-11.0 Blood erythrocytes automated count (number/volume) 4.65 10*6/uL 4.35-5.85 Venous blood hemoglobin measurement (mass/volume) 14.0 g/dL 13.3-17.7 Blood hematocrit (volume fraction) 41 % 40-54 Automated erythrocyte mean corpuscular volume 87 [ foz_us] 80-99 Automated erythrocyte mean corpuscular h emoglobin (mass per erythrocyte) 30 pg 25-34 Automated erythrocyte mean corpuscular h emoglobin concentration measurement (mass/volume) 35 g/dL 32-36 Automated erythrocyte distribution width ratio 12. 6 % 10.0- 14.5 Automated blood platelet count (count/volume) 265 10*3/uL 130-400 Automated blood platelet mean volume measurement 10.9 [foz_us] 7.4-10.4 Automated blood neutrophils/100 leukocytes 85 % 42-75 Automated blood lymphocytes/100 leukocytes 10 % 12-44 Blood monocytes/100 leukocytes 5 % 0-12 Automated blood eosinophils/100 leukocytes 0 % 0-10 Automated blood basophils/100 leukocytes 0 % 0-10 Blood neutrophils automated count (number/volume) 11.6 10*3 1.8-7.8 Blood lymphocytes automated count (number/volume) 1.3 10*3 1.0-4.0 Blood monocytes automated count (number/volume) 0. 6 10*3 0.0-1.0 Automated eosinophil count 0.0 10*3/uL 0 .0-0.3 Automated blood basophil count (count/volume) 0.0 10*3/uL 0.0-0.1 Comprehensive metabolic panel - 02/05/19 17:15 Serum or plasma sodium measurement (moles/volume) 142 mmol/L 135-145 Serum or plasma potassium measurement (moles/volume) 4.1 mmol/L 3.6-5.0 Serum or plasma chloride measurement (moles/volume) 108 mmol/L 98-107 Carbon dioxide 18 mmol/L 21-32 Serum or plasma anion gap determination (moles/volume) 16 mmol/L 5-14 Serum or plasma urea nitrogen measurement (mass/volume ) 22 mg/dL 7-18 Serum or plasma creatinine measurement (mass/volume) 1.12 mg/dL 0.60-1.30 Serum or plasma urea nitrogen/creatinine mass ratio 20 NRG Serum or plasma creatinine measurement w ith calculation of estimated glomerular filtration rate > NRG Serum or plasma glucose measurement (mass/volume) 134 mg/dL 70-105 Serum or plasma calcium measurement (mass/volume) 9.9 mg/dL 8.5-10.1 Serum or plasma total bilirubin measurement (mass/volu me) 0.4 mg/dL 0.1-1.0 Serum or plasma alkaline phosphatase ramón surement (enzymatic activity/volume) 104 U/L 40-136 Serum or plasma aspartate aminotransfera se measurement (enzymatic activity/volume) 34 U/L 5-34 Serum or plasma alanine aminotransferase measurement (enzymatic activity/volume) 52 U/L 0-55 Serum or plasma protein measurement (mass/volume) 7.6 g/dL 6.4-8.2 Serum or plasma albumin measurement (mass/volume) 4.4 g/dL 3.2-4.5 CALCIUM CORRECTED 9.6 mg/dL 8.5-10.1 Serum or plasma creatine kinase measurem ent (enzymatic activity/volume) - 02/05/19 17:15 Serum or plasma creatine kinase measurem ent (enzymatic activity/volume) 671 U/L 30-200 Complete urinalysis with reflex to cultu re - 02/05/19 18:24 Urine color determination YELLOW NRG Urine clarity determination CLEAR NR G Urine pH measurement by test strip 6 5-9 Specific gravity of urine by test strip 1.025 1.016-1.022 Urine protein assay by test strip, semi-quantitative NEGATIVE NEGATIVE Urine glucose detection by automated test strip NE GATIVE NEGATIVE Erythrocytes detection in urine sediment by light micr oscopy NEGATIVE NEGATIVE Urine ketones detection by automated test strip NE GATIVE NEGATIVE Urine nitrite detection by test strip NEGATIVE NEGATIVE Urine total bilirubin detection by test strip NEGA TIVE NEGATIVE Urine urobilinogen measurement by automated test strip (mass/volume) NORMAL NORMAL Urine leukocyte esterase detection by dipstick NEG ATIVE NEGATIVE Automated urine sediment erythrocyte cou nt by microscopy (number/high power field) NONE NRG Automated urine sediment leukocyte count by microscopy (number/high power field) NONE NRG Bacteria detection in urine sediment by light microsco py NEGATIVE NRG Squamous epithelial cells detection in u rine sediment by light microscopy RARE NRG Crystals detection in urine sediment by light microsco py NONE NRG Casts detection in urine sediment by light microscopy NONE NRG Mucus detection in urine sediment by light microscopy NEGATIVE NRG Complete urinalysis with reflex to culture NO NRG Urine drug screening test - 02/05/19 18: 24 Urine phencyclidine detection by screening method NEGATIVE NEGATIVE Urine benzodiazepines detection by screening method NEGATIVE NEGATIVE Urine cocaine detection NEGATIVE NEGATI VE Urine amphetamines detection by screening method P OSITIVE NEGATIVE Urine methamphetamine detection by screening method NEGATIVE NEGATIVE Urine cannabinoids detection by screening method N EGATIVE NEGATIVE Urine opiates detection by screening method NEGATI VE NEGATIVE Urine barbiturates detection NEGATIVE N EGATIVE Screening urine tricyclic antidepressants detection NEGATIVE NEGATIVE Urine methadone detection by screening method NEGA TIVE NEGATIVE Urine oxycodone detection NEGATIVE NEGA TIVE Urine propoxyphene detection NEGATIVE N EGATIVE Serum or plasma lithium measurement (mol es/volume) - 10/17/19 18:45 BNP PT 866.6 pg/mL <100.0 Complete blood count (CBC) with automate d white blood cell (WBC) differential - 10/17/19 18:48 Blood leukocytes automated count (number/volume) 24.7 10*3/uL 4.3-11.0 Blood erythrocytes automated count (number/volume) 5.60 10*6/uL 4.35-5.85 Venous blood hemoglobin measurement (mass/volume) 16.9 g/dL 13.3-17.7 Blood hematocrit (volume fraction) 48 % 40-54 Automated erythrocyte mean corpuscular volume 86 [ foz_us] 80-99 Automated erythrocyte mean corpuscular h emoglobin (mass per erythrocyte) 30 pg 25-34 Automated erythrocyte mean corpuscular h emoglobin concentration measurement (mass/volume) 35 g/dL 32-36 Automated erythrocyte distribution width ratio 12. 6 % 10.0- 14.5 Automated blood platelet count (count/volume) 281 10*3/uL 130-400 Automated blood platelet mean volume measurement 11.3 [foz_us] 7.4-10.4 Automated blood neutrophils/100 leukocytes 65 % 42-75 Automated blood lymphocytes/100 leukocytes 26 % 12-44 Blood monocytes/100 leukocytes 8 % 0-12 Automated blood eosinophils/100 leukocytes 1 % 0-10 Automated blood basophils/100 leukocytes 0 % 0-10 Blood neutrophils automated count (number/volume) 16.1 10*3 1.8-7.8 Blood lymphocytes automated count (number/volume) 6.4 10*3 1.0-4.0 Blood monocytes automated count (number/volume) 2. 0 10*3 0.0-1.0 Automated eosinophil count 0.2 10*3/uL 0 .0-0.3 Automated blood basophil count (count/volume) 0.1 10*3/uL 0.0-0.1 PT panel in platelet poor plasma by coag ulation assay - 10/17/19 18:48 Prothrombin time (PT) in platelet poor plasma by coagu lation assay 14.8 s 12.2-14.7 INR in platelet poor plasma or blood by coagulation as say 1.1 0.8-1.4 Activated partial thromboplastin time (a PTT) in platelet poor plasma bycoagulation assay - 10/17/19 18:48 Activated partial thromboplastin time (a PTT) in platelet poor plasma bycoagulation assay 29 s 24-35 Manual absolute plasma cell count - 04/29 18:48 Blood monocytes/100 leukocytes 11 % NRG Manual blood segmented neutrophils/100 leukocytes 55 % NRG Blood band neutrophils/100 leukocytes 6 % NRG Manual blood lymphocytes/100 leukocytes 27 % NRG Manual eosinophils/100 leukocytes in nose 1 % NRG Manual blood basophils/100 leukocytes 0 % NRG Blood erythrocyte morphology finding identification NORMAL NRG Comprehensive metabolic panel - 10/17/19 18:48 Serum or plasma sodium measurement (moles/volume) 135 mmol/L 135-145 Serum or plasma potassium measurement (moles/volume) 4.6 mmol/L 3.6-5.0 Serum or plasma chloride measurement (moles/volume) 101 mmol/L 98-107 Carbon dioxide 15 mmol/L 21-32 Serum or plasma anion gap determination (moles/volume) 19 mmol/L 5-14 Serum or plasma urea nitrogen measurement (mass/volume ) 29 mg/dL 7-18 Serum or plasma creatinine measurement (mass/volume) 2.14 mg/dL 0.60-1.30 Serum or plasma urea nitrogen/creatinine mass ratio 14 NRG Serum or plasma creatinine measurement w ith calculation of estimated glomerular filtration rate 34 NRG Serum or plasma glucose measurement (mass/volume) 154 mg/dL 70-105 Serum or plasma calcium measurement (mass/volume) 10.2 mg/dL 8.5-10.1 Serum or plasma total bilirubin measurement (mass/volu me) 1.2 mg/dL 0.1-1.0 Serum or plasma alkaline phosphatase ramón surement (enzymatic activity/volume) 131 U/L 40-136 Serum or plasma aspartate aminotransfera se measurement (enzymatic activity/volume) 109 U/L 5-34 Serum or plasma alanine aminotransferase measurement (enzymatic activity/volume) 174 U/L 0-55 Serum or plasma protein measurement (mass/volume) 8.5 g/dL 6.4-8.2 Serum or plasma albumin measurement (mass/volume) 4.9 g/dL 3.2-4.5 Magnesium - 10/17/19 18:48 Magnesium 2.1 mg/dL 1.6-2.4 Serum or plasma troponin i.cardiac measu rement (mass/volume) - 10/17/19 18:48 Serum or plasma troponin i.cardiac measurement (mass/v olume) 0.161 ng/mL <0.028 Myoglobin, serum - 10/17/19 18:48 Myoglobin, serum 109.3 ng/mL 10.0-92.0 Serum or plasma ethanol measurement (mas s/volume) - 10/17/19 18:58 Serum or plasma ethanol measurement (mass/volume) < mg/dL <10 Methicillin resistant Staphylococcus aur eus (MRSA) screening culture - 10/17/19 21:32 Methicillin resistant Staphylococcus aureus (MRSA) scr eening culture NEG NRG Urine drug screening test - 10/17/19 22: 15 Urine phencyclidine detection by screening method NEGATIVE NEGATIVE Urine benzodiazepines detection by screening method NEGATIVE NEGATIVE Urine cocaine detection NEGATIVE NEGATI VE Urine amphetamines detection by screening method P OSITIVE NEGATIVE Urine methamphetamine detection by screening method POSITIVE NEGATIVE Urine cannabinoids detection by screening method N EGATIVE NEGATIVE Urine opiates detection by screening method NEGATI VE NEGATIVE Urine barbiturates detection NEGATIVE N EGATIVE Screening urine tricyclic antidepressants detection NEGATIVE NEGATIVE Urine methadone detection by screening method NEGA TIVE NEGATIVE Urine oxycodone detection NEGATIVE NEGA TIVE Urine propoxyphene detection NEGATIVE N EGATIVE Complete blood count (CBC) with automate d white blood cell (WBC) differential - 10/18/19 03:27 Blood leukocytes automated count (number/volume) 16.6 10*3/uL 4.3-11.0 Blood erythrocytes automated count (number/volume) 4.33 10*6/uL 4.35-5.85 Venous blood hemoglobin measurement (mass/volume) 13.0 g/dL 13.3-17.7 Blood hematocrit (volume fraction) 38 % 40-54 Automated erythrocyte mean corpuscular volume 87 [ foz_us] 80-99 Automated erythrocyte mean corpuscular h emoglobin (mass per erythrocyte) 30 pg 25-34 Automated erythrocyte mean corpuscular h emoglobin concentration measurement (mass/volume) 35 g/dL 32-36 Automated erythrocyte distribution width ratio 12. 3 % 10.0- 14.5 Automated blood platelet count (count/volume) 175 10*3/uL 130-400 Automated blood platelet mean volume measurement 11.3 [foz_us] 7.4-10.4 Automated blood neutrophils/100 leukocytes 68 % 42-75 Automated blood lymphocytes/100 leukocytes 23 % 12-44 Blood monocytes/100 leukocytes 8 % 0-12 Automated blood eosinophils/100 leukocytes 1 % 0-10 Automated blood basophils/100 leukocytes 0 % 0-10 Blood neutrophils automated count (number/volume) 11.3 10*3 1.8-7.8 Blood lymphocytes automated count (number/volume) 3.7 10*3 1.0-4.0 Blood monocytes automated count (number/volume) 1. 4 10*3 0.0-1.0 Automated eosinophil count 0.1 10*3/uL 0 .0-0.3 Automated blood basophil count (count/volume) 0.1 10*3/uL 0.0-0.1 Comprehensive metabolic panel - 10/18/19 03:27 Serum or plasma sodium measurement (moles/volume) 132 mmol/L 135-145 Serum or plasma potassium measurement (moles/volume) 3.8 mmol/L 3.6-5.0 Serum or plasma chloride measurement (moles/volume) 105 mmol/L 98-107 Carbon dioxide 16 mmol/L 21-32 Serum or plasma anion gap determination (moles/volume) 11 mmol/L 5-14 Serum or plasma urea nitrogen measurement (mass/volume ) 21 mg/dL 7-18 Serum or plasma creatinine measurement (mass/volume) 1.03 mg/dL 0.60-1.30 Serum or plasma urea nitrogen/creatinine mass ratio 20 NRG Serum or plasma creatinine measurement w ith calculation of estimated glomerular filtration rate > NRG Serum or plasma glucose measurement (mass/volume) 104 mg/dL 70-105 Serum or plasma calcium measurement (mass/volume) 7.9 mg/dL 8.5-10.1 Serum or plasma total bilirubin measurement (mass/volu me) 0.9 mg/dL 0.1-1.0 Serum or plasma alkaline phosphatase ramón surement (enzymatic activity/volume) 93 U/L 40-136 Serum or plasma aspartate aminotransfera se measurement (enzymatic activity/volume) 60 U/L 5-34 Serum or plasma alanine aminotransferase measurement (enzymatic activity/volume) 107 U/L 0-55 Serum or plasma protein measurement (mass/volume) 6.1 g/dL 6.4-8.2 Serum or plasma albumin measurement (mass/volume) 3.6 g/dL 3.2-4.5 CALCIUM CORRECTED 8.2 mg/dL 8.5-10.1 Magnesium - 10/18/19 03:27 Magnesium 1.7 mg/dL 1.6-2.4 Serum or plasma troponin i.cardiac measu rement (mass/volume) - 10/18/19 03:27 Serum or plasma troponin i.cardiac measurement (mass/v olume) 0.158 ng/mL <0.028 Lipid 1996 panel - 10/18/19 03:27 Serum or plasma triglyceride measurement (mass/volume) 169 mg/dL <150 Serum or plasma cholesterol measurement (mass/volume) 149 mg/dL < 200 Serum or plasma cholesterol in HDL measurement (mass/v olume) 44 mg/dL 40-60 Cholesterol in LDL [mass/volume] in serum or plasma by direct assay 97 mg/dL 1-129 Serum or plasma cholesterol in VLDL measurement (mass/ volume) 34 mg/dL 5-40 Automated blood complete blood count (he mogram) panel - 10/18/19 09:25 Blood leukocytes automated count (number/volume) 15.2 10*3/uL 4.3-11.0 Blood erythrocytes automated count (number/volume) 4.28 10*6/uL 4.35-5.85 Venous blood hemoglobin measurement (mass/volume) 12.9 g/dL 13.3-17.7 Blood hematocrit (volume fraction) 38 % 40-54 Automated erythrocyte mean corpuscular volume 88 [ foz_us] 80-99 Automated erythrocyte mean corpuscular h emoglobin (mass per erythrocyte) 30 pg 25-34 Automated erythrocyte mean corpuscular h emoglobin concentration measurement (mass/volume) 34 g/dL 32-36 Automated erythrocyte distribution width ratio 12. 2 % 10.0- 14.5 Automated blood platelet count (count/volume) 176 10*3/uL 130-400 Automated blood platelet mean volume measurement 11.3 [foz_us] 7.4-10.4 PT panel in platelet poor plasma by coag ulation assay - 10/18/19 09:25 Prothrombin time (PT) in platelet poor plasma by coagu lation assay 15.6 s 12.2-14.7 INR in platelet poor plasma or blood by coagulation as say 1.2 0.8-1.4 Activated partial thromboplastin time (a PTT) in platelet poor plasma bycoagulation assay - 10/18/19 09:25 Activated partial thromboplastin time (a PTT) in platelet poor plasma bycoagulation assay 43 s 24-35 Acute hepatitis panel - 10/18/19 15:15 HEPATITIS A ANTIBODY IGM Non-Reactive N on-Reactive HEPATITIS B CORE PANCHO IGM Non-Reactive N on-Reactive Confirmatory quantitative serum or plasm a hepatitis B virus surface antigen measurement Non-Reactive Non-Reactive Serum hepatitis C virus antibody detection Non-Rahel ctive Non-Reactive Complete blood count (CBC) with automate d white blood cell (WBC) differential - 10/19/19 03:08 Blood leukocytes automated count (number/volume) 12.7 10*3/uL 4.3-11.0 Blood erythrocytes automated count (number/volume) 4.11 10*6/uL 4.35-5.85 Venous blood hemoglobin measurement (mass/volume) 12.4 g/dL 13.3-17.7 Blood hematocrit (volume fraction) 36 % 40-54 Automated erythrocyte mean corpuscular volume 88 [ foz_us] 80-99 Automated erythrocyte mean corpuscular h emoglobin (mass per erythrocyte) 30 pg 25-34 Automated erythrocyte mean corpuscular h emoglobin concentration measurement (mass/volume) 34 g/dL 32-36 Automated erythrocyte distribution width ratio 12. 0 % 10.0- 14.5 Automated blood platelet count (count/volume) 162 10*3/uL 130-400 Automated blood platelet mean volume measurement 11.5 [foz_us] 7.4-10.4 Automated blood neutrophils/100 leukocytes 73 % 42-75 Automated blood lymphocytes/100 leukocytes 18 % 12-44 Blood monocytes/100 leukocytes 7 % 0-12 Automated blood eosinophils/100 leukocytes 2 % 0-10 Automated blood basophils/100 leukocytes 0 % 0-10 Blood neutrophils automated count (number/volume) 9.3 10*3 1.8-7.8 Blood lymphocytes automated count (number/volume) 2.3 10*3 1.0-4.0 Blood monocytes automated count (number/volume) 0. 9 10*3 0.0-1.0 Automated eosinophil count 0.2 10*3/uL 0 .0-0.3 Automated blood basophil count (count/volume) 0.0 10*3/uL 0.0-0.1 Comprehensive metabolic panel - 10/19/19 03:08 Serum or plasma sodium measurement (moles/volume) 137 mmol/L 135-145 Serum or plasma potassium measurement (moles/volume) 4.1 mmol/L 3.6-5.0 Serum or plasma chloride measurement (moles/volume) 109 mmol/L 98-107 Carbon dioxide 17 mmol/L 21-32 Serum or plasma anion gap determination (moles/volume) 11 mmol/L 5-14 Serum or plasma urea nitrogen measurement (mass/volume ) 13 mg/dL 7-18 Serum or plasma creatinine measurement (mass/volume) 0.95 mg/dL 0.60-1.30 Serum or plasma urea nitrogen/creatinine mass ratio 14 NRG Serum or plasma creatinine measurement w ith calculation of estimated glomerular filtration rate > NRG Serum or plasma glucose measurement (mass/volume) 101 mg/dL 70-105 Serum or plasma calcium measurement (mass/volume) 8.2 mg/dL 8.5-10.1 Serum or plasma total bilirubin measurement (mass/volu me) 0.4 mg/dL 0.1-1.0 Serum or plasma alkaline phosphatase ramón surement (enzymatic activity/volume) 87 U/L 40-136 Serum or plasma aspartate aminotransfera se measurement (enzymatic activity/volume) 35 U/L 5-34 Serum or plasma alanine aminotransferase measurement (enzymatic activity/volume) 79 U/L 0-55 Serum or plasma protein measurement (mass/volume) 6.0 g/dL 6.4-8.2 Serum or plasma albumin measurement (mass/volume) 3.4 g/dL 3.2-4.5 CALCIUM CORRECTED 8.7 mg/dL 8.5-10.1 Serum or plasma phosphate measurement (m ass/volume) - 10/19/19 03:08 Serum or plasma phosphate measurement (mass/volume) 2.4 mg/dL 2.3-4.7 Magnesium - 10/19/19 03:08 Magnesium 1.7 mg/dL 1.6-2.4 Complete blood count (CBC) with automate d white blood cell (WBC) differential - 10/20/19 03:24 Blood leukocytes automated count (number/volume) 13.7 10*3/uL 4.3-11.0 Blood erythrocytes automated count (number/volume) 4.30 10*6/uL 4.35-5.85 Venous blood hemoglobin measurement (mass/volume) 12.8 g/dL 13.3-17.7 Blood hematocrit (volume fraction) 37 % 40-54 Automated erythrocyte mean corpuscular volume 87 [ foz_us] 80-99 Automated erythrocyte mean corpuscular h emoglobin (mass per erythrocyte) 30 pg 25-34 Automated erythrocyte mean corpuscular h emoglobin concentration measurement (mass/volume) 34 g/dL 32-36 Automated erythrocyte distribution width ratio 11. 8 % 10.0- 14.5 Automated blood platelet count (count/volume) 186 10*3/uL 130-400 Automated blood platelet mean volume measurement 11.0 [foz_us] 7.4-10.4 Automated blood neutrophils/100 leukocytes 75 % 42-75 Automated blood lymphocytes/100 leukocytes 14 % 12-44 Blood monocytes/100 leukocytes 9 % 0-12 Automated blood eosinophils/100 leukocytes 2 % 0-10 Automated blood basophils/100 leukocytes 0 % 0-10 Blood neutrophils automated count (number/volume) 10.2 10*3 1.8-7.8 Blood lymphocytes automated count (number/volume) 1.9 10*3 1.0-4.0 Blood monocytes automated count (number/volume) 1. 3 10*3 0.0-1.0 Automated eosinophil count 0.3 10*3/uL 0 .0-0.3 Automated blood basophil count (count/volume) 0.0 10*3/uL 0.0-0.1 Comprehensive metabolic panel - 10/20/19 03:24 Serum or plasma sodium measurement (moles/volume) 135 mmol/L 135-145 Serum or plasma potassium measurement (moles/volume) 3.8 mmol/L 3.6-5.0 Serum or plasma chloride measurement (moles/volume) 107 mmol/L 98-107 Carbon dioxide 17 mmol/L 21-32 Serum or plasma anion gap determination (moles/volume) 11 mmol/L 5-14 Serum or plasma urea nitrogen measurement (mass/volume ) 16 mg/dL 7-18 Serum or plasma creatinine measurement (mass/volume) 1.03 mg/dL 0.60-1.30 Serum or plasma urea nitrogen/creatinine mass ratio 16 NRG Serum or plasma creatinine measurement w ith calculation of estimated glomerular filtration rate > NRG Serum or plasma glucose measurement (mass/volume) 107 mg/dL 70-105 Serum or plasma calcium measurement (mass/volume) 8.3 mg/dL 8.5-10.1 Serum or plasma total bilirubin measurement (mass/volu me) 0.3 mg/dL 0.1-1.0 Serum or plasma alkaline phosphatase ramón surement (enzymatic activity/volume) 93 U/L 40-136 Serum or plasma aspartate aminotransfera se measurement (enzymatic activity/volume) 24 U/L 5-34 Serum or plasma alanine aminotransferase measurement (enzymatic activity/volume) 58 U/L 0-55 Serum or plasma protein measurement (mass/volume) 6.1 g/dL 6.4-8.2 Serum or plasma albumin measurement (mass/volume) 3.4 g/dL 3.2-4.5 CALCIUM CORRECTED 8.8 mg/dL 8.5-10.1 Serum or plasma phosphate measurement (m ass/volume) - 10/20/19 03:24 Serum or plasma phosphate measurement (mass/volume) 3.5 mg/dL 2.3-4.7 Magnesium - 10/20/19 03:24 Magnesium 1.7 mg/dL 1.6-2.4 Encounters ACCT No. Visit Date/Time Discharge Status Pt. Type Provider Facility Loc./Unit Complaint [id number] 11/24/2019 18:40:00 11/24/2019 23:59: 59 CLS [facility] [id number] 05/30/2018 15:00:00 Document Registration [id number] 10/17/2019 19:33:00 020 11:05:00 DIS Outpatient PARI RUELAS, LUIS Amaro [facility] ICU V-TACH,CHEST PAIN,RENAL FAILURE [id number] 02/05/2019 16:45:00 019 18:31:00 DIS Emergency JERONIMO AMEZCUA [facility] ER POSSIBLE DEHYDRATION [id number] 10/13/2018 21:01:00 019 23:08:00 DIS Emergency JERONIMO AMEZCUA [facility] ER UPPER ABD PAIN,LOW BODY TEMP
--- NOTE | 2020-01-08 23:15 | ED Upper Extremity ---
General Chief Complaint: Upper Extremity Stated Complaint: HAS DEFIBRILLATOR/L ARM DISCOLORATION History of Present Illness Date Seen by Provider: Jan 08, 2020 Time Seen by Provider: 11:00 Initial Comments 39-year-old male presents for left arm, changes in skin color. He had defibrillator [place] in [place] [address] Barker. At work tonight, he noticed some purple discoloration through his bicep and tricep. Both hands were cool to touch. No pain in left arm. He is not aspirin or anticoagulants. He is continuing to use Meth but no IV injections. Onset: just prior to arrival Severity: mild Pain/Injury Location: left arm Method of Injury: unknown Allergies and Home Medications Allergies Coded Allergies: No Known Drug Allergies (Unverified , 10/13/18) Home Medications Amiodarone HCl 200 Mg Tablet, 200 MG PO BID Prescribed by: Denia BARKER on 10/19/19 1205 Metoprolol Succinate 50 Mg Tab.er.24h, 50 MG PO DAILY Prescribed by: Denia BARKER on 10/19/19 1205 Patient Home Medication List Home Medication List Reviewed: Yes Review of Systems Constitutional: no symptoms reported, see HPI Skin: see HPI, change in color (left UE) All Other Systems Reviewed Negative Unless Noted: Yes Past Qlvhsdh-Licicb-Cwqtql Hx Past Med/Social Hx: Reviewed Nursing Past Med/Soc Hx Patient Social History Drug of Choice: METH- smoking and injecting Type Used: Cigars, Electronic/Vapor 2nd Hand Smoke Exposure: Yes Recent Foreign Travel: No Contact w/Someone Who Travel: No Recent Hopitalizations: No Immunizations Up To Date Tetanus Booster (TDap): Unknown PED Vaccines UTD: Yes Seasonal Allergies Seasonal Allergies: No Past Medical History Surgeries: No Respiratory: No Cardiac: No Neurological: No Genitourinary: No Gastrointestinal: No Musculoskeletal: No Endocrine: No HEENT: No Cancer: No Psychosocial: Yes (methamphetamine abuse) Bipolar Integumentary: No Family Medical History No Pertinent Family Hx Physical Exam Vital Signs Vital Signs - First Documented 01/08/20 22:50 Temp 36.5 Pulse 91 Resp 18 B/P (MAP) 147/103 (118) Pulse Ox 99 O2 Delivery Room Air Capillary Refill : Height, Weight, BMI Height: 6'0" Weight: 205lbs. oz. 92.455699wz; 27.00 BMI Method:Stated General Appearance: WD/WN, no apparent distress Neck: non-tender, full range of motion, supple, normal inspection Cardiovascular: normal peripheral pulses, regular rate, rhythm Respiratory: chest non-tender, lungs clear, normal breath sounds Gastrointestinal: normal bowel sounds, non tender, soft Shoulder: non-tender, no evidence of injury, normal ROM Elbow/Forearm: normal inspection, non-tender, no evidence of injury, normal ROM, Left Wrist: Yes normal inspection, Yes non-tender, Yes no evidence of injury, Yes normal ROM Hand: normal inspection, non-tender, no evidence of injury, normal ROM, Left Neurologic/Tendon: normal sensation, normal motor functions, normal tendon functions Neurologic/Psychiatric: no motor/sensory deficits, alert, normal mood/affect, oriented x 3 Left upper arm over bicep/tricep with trace purple discoloration, nontender with no skin lesions or masses. No skin color changes below elbow. Radial and ulnar pulses 2+ and symmetric. Cap refill < 3 sec, bilat UEs. Sensation intact bilat UEs. Progress/Results/Core Measures Results/Orders Vital Signs/I&O 01/08/20 22:50 Temp 36.5 Pulse 91 Resp 18 B/P (MAP) 147/103 (118) Pulse Ox 99 O2 Delivery Room Air Initial ECG Impression Date: Jan 08, 2020 Initial ECG Impression Time: 22:58 Initial ECG Rate: 86 Initial ECG Rhythm: Normal Sinus Initial ECG Intervals: Normal Initial ECG Intervals ER 68, QRSD 100, QT 372, QTC 445. [place] P 30, QRS 12, T 21. Initial ECG Impression: Normal Initial ECG Comparisson: Unchanged Departure Impression Primary Impression: Discoloration of skin Disposition: 01 HOME, SELF-CARE Condition: Improved Departure-Patient Inst. Decision time for Depature: 23:20 Referrals: DELFINO MARCUM MD (PCP/Family) Primary Care Physician Patient Instructions: Muscle Strain (DC) Add. Discharge Instructions: Begin taking aspirin 81 mg 1 tablet daily. Continue to monitor the left upper extremity or skin color changes, swelling, or other new findings. Reported these to Dr. Barker if symptoms are not improving. Return to the emergency department for new, urgent health care problems. All discharge instructions reviewed with patient and/or family. Voiced understanding. Copy Copies To 1: DELFINO MARCUM MD; Denia BARKER MD, AMY ARNP Jan 08, 2020 23:15
[2020-01-08 23:27] VITALS: BP 132/91
[2020-01-08] MEDS ORDERED: ASPIRIN 81 MG CHEW (CHILDREN'S ASA) PO ONE (23:30)
== END 2020-01-08 23:28 | disposition home or self-care (01) ==
LOC: EDUNIT# 22:49 → ER 22:50
DX: R23.8 Other skin changes (principal); F31.9 Bipolar disorder, unspecified; F15.10 Other stimulant abuse, uncomplicated; F17.290 Nicotine dependence, other tobacco product, uncomplicated; Z79.899 Other long term (current) drug therapy; Z95.810 Presence of automatic (implantable) cardiac defibrillator

== ENCOUNTER 2021-06-04 10:53 | Outpatient (CLI) | payer MEDICAID ==
[~2021-06-04 10:53] MED LIST changes: -AMIO200T4 PO; +AMIO200T6 PO; -SULF1TAB35 PO; +SULF1TAB38 PO
== END 2021-06-04 11:15 ==
LOC: SLEEP 10:53
PROVIDERS: ATTEND Nurse Practitioner
DX: R06.83 Snoring (principal); R06.81 Apnea, not elsewhere classified; I10 Essential (primary) hypertension
CPT/HCPCS: G0399